=== PATIENT | male | born 1940 | race Caucasian/White ===

== ENCOUNTER 2023-02-15 13:31 | Outpatient (AMB) | payer MEDICARE, OTHER, SELFPAY ==
[2023-02-15 13:50] VITALS: BP 90/50; PULSE 63; O2SAT 96; BMI 29.3
--- NOTE | 2023-02-15 13:50 | HO.NEPHOV ---
HPI HPI Comments History of Present Illness Details I had the privilege of seeing Nathen in follow-up of his chronic kidney disease and hypertension. He is a diabetic on medications. His blood sugar control is better. His blood pressure has been at goal. Lately, he had been feeling dizzy at times. He has no edema. He denies any nausea, vomiting, shortness of breath, proximal nocturnal dyspnea, orthopnea, cough or urinary symptoms. He is trying to be compliant with low-sodium diet and fluid intake. He has not had any medication changes lately. He does not take any nonsteroidal anti-inflammatory medication. [facility] Medical History (Updated 02/15/23 @ 19:02 by Beto Collazo MD) Proteinuria Hypertension Chronic kidney disease, stage 3a Family History (Updated 02/15/23 @ 13:56 by aZndra Maria MA) Mother Heart disease Social History (Updated 02/15/23 @ 13:56 by Zandra Maria MA) Alcohol intake: never Patient Tobacco Use Status: Former Tobacco user Vital Signs 02/15/23 13:50 Height 6 ft Weight 216 lb 6 oz BMI 29.3 BP 90/50 L Blood Pressure Location Rt brachial Position Sitting Pulse 63 Pulse Source Pulse Oximeter Pulse Oximetry (%) 96 Oxygen Delivery Method Room Air Physical Exam Vital Signs: Last Vital Signs Pulse 63 02/15/23 13:50 BP 90/50 L 02/15/23 13:50 Pulse Ox 96 02/15/23 13:50 Oxygen Delivery Method Room Air 02/15/23 13:50 BMI result Body Mass Index 29.3 Const General: comfortable and no acute distress Orientation/consciousness: patient oriented x3 HEENT Head: Yes normocephalic Mouth: Normal oral and palatal mucosa present Eyes EOM: EOMs intact bilaterally Neck Neck: Yes supple Resp Auscultation: clear to auscultation bilaterally Cardio Jugular venous distension: no JVD Rate: regular rate GI Palpation (GI): Soft to palpation Auscultation: normal bowel sounds General: Yes no CVA tenderness Back/Spine/Pelvis Back: no CVA tenderness Skin General skin exam: no rashes or lesions noted Neuro General: patient oriented x3 and moves all extremities Extrem General: Yes no pedal edema Assessment & Plan Assessment & Plan (1) CKD (chronic kidney disease) stage 3, GFR 30-59 ml/min: Code(s): N18.30 - Chronic kidney disease, stage 3 unspecified Qualifiers: Chronic kidney disease stage 3 subtype: stage 3a (GFR 45-59) Qualified Code(s): N18.31 - Chronic kidney disease, stage 3a (2) Hypertension: Code(s): I10 - Essential (primary) hypertension Qualifiers: Hypertension type: primary hypertension Qualified Code(s): I10 - Essential (primary) hypertension (3) Proteinuria: Code(s): R80.9 - Proteinuria, unspecified Qualifiers: Proteinuria type: other Qualified Code(s): R80.8 - Other proteinuria (4) Vitamin D deficiency: Code(s): E55.9 - Vitamin D deficiency, unspecified Plan 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 His blood urea his high and is clearly volume contracted. I reduced his torsemide to 40 mg and 20 mg p.m. I started him on vitamin-D 96327 units once a week for 12 weeks. I also reduced his carvedilol to 6.25 mg twice daily. He should maintain low-sodium diet and fluid restriction. He should avoid any nonsteroidal anti-inflammatories and unnecessary psxu-tsy-bbxaotm medications. He should maintain his blood sugar at goal. He will be a candidate for Jardiance or Farxiga. If his serum creatinine goes up, he may back off on his YADIRA inhibitor. I did not make any other medication changes today. Follow-up lab work ordered. Time spent retrieving data, documentation and patient encounter 33 minutes. All questions answered. Follow-up given. Orders: Orders Electrolytes 02/12/23 N18.30 - Chronic kidney disease, stage 3 unspecified Blood Urea Nitrogen 02/12/23 N18.30 - Chronic kidney disease, stage 3 unspecified Creatinine 02/12/23 N18.30 - Chronic kidney disease, stage 3 unspecified Complete Blood Count Auto Diff 02/12/23 N18.30 - Chronic kidney disease, stage 3 unspecified Vitamin D 25-OH Total 02/12/23 N18.30 - Chronic kidney disease, stage 3 unspecified Creatinine Today N18.30 - Chronic kidney disease, stage 3 unspecified Calcium 02/12/23 N18.30 - Chronic kidney disease, stage 3 unspecified Phosphorus 02/12/23 N18.30 - Chronic kidney disease, stage 3 unspecified Parathyroid Hormone Intact 02/12/23 N18.30 - Chronic kidney disease, stage 3 unspecified Electrolytes Today N18.30 - Chronic kidney disease, stage 3 unspecified Blood Urea Nitrogen Today N18.30 - Chronic kidney disease, stage 3 unspecified Medications: New cholecalciferol (vitamin D3) 1,250 mcg PO QWEEK 12 caps 0RF Coding Level of Care Code Est Pt Level 4 (06539) Diagnoses Stage 3a chronic kidney disease N18.31 Chronic kidney disease stage 3 subtype: stage 3a (GFR 45-59) Primary hypertension I10 Hypertension type: primary hypertension Other proteinuria R80.8 Proteinuria type: other Vitamin D deficiency E55.9 Results Reviewed Nephrology Results: No Data to Display
== END 2023-02-15 14:20 | disposition home or self-care (01) ==
PROVIDERS: PCP Internal Medicine; Visit Provider Internal Medicine Nephrology
DX: N18.31 Chronic kidney disease, stage 3a (principal); I10 Essential (primary) hypertension; R80.8 Other proteinuria; E55.9 Vitamin D deficiency, unspecified
CPT/HCPCS: 99214

== ENCOUNTER → 2023-02-15 13:31 | Outpatient (BNVA) | payer OTHER, MEDICARE, SELFPAY | PROVIDERS: PCP Internal Medicine; Visit Provider Internal Medicine Nephrology | DX: N18.30 Chronic kidney disease, stage 3 unspecified (principal) ==

== ENCOUNTER 2023-05-03 13:49 | Outpatient (AMB) | payer MEDICARE, OTHER, SELFPAY ==
--- NOTE | 2023-05-03 14:07 | HO.NEPHOV_ITS ---
HPI HPI Comments History of Present Illness Details I had the privilege of seeing Nathen in follow-up of his chronic kidney disease and hypertension. He is a diabetic on medications. His blood sugar control is better. His blood pressure has been at goal. Lately, he had been feeling dizzy at times. He has no edema. He denies any nausea, vomiting, shortness of breath, proximal nocturnal dyspnea, orthopnea, cough or urinary symptoms. He is trying to be compliant with low-sodium diet and fluid intake. He has not had any medication changes lately. He does not take any nonsteroidal anti-inflammatory medication. [facility] Medical History (Updated 05/03/23 @ 14:39 by Beto Collazo MD) Proteinuria Hypertension Chronic kidney disease, stage 3a Family History Mother Heart disease Social History Alcohol intake: never Patient Tobacco Use Status: Former Tobacco user Vital Signs 05/03/23 14:08 Height 6 ft Weight 227 lb 4 oz BMI 30.8 BP 118/50 L Blood Pressure Location Lt brachial Position Sitting Pulse 65 Pulse Source Pulse Oximeter Physical Exam Vital Signs: Last Vital Signs Pulse 65 05/03/23 14:08 BP 118/50 L 05/03/23 14:08 BMI result Body Mass Index 30.8 Const General: comfortable and no acute distress Orientation/consciousness: patient oriented x3 HEENT Head: Yes normocephalic Mouth: Normal oral and palatal mucosa present Eyes EOM: EOMs intact bilaterally Neck Neck: Yes supple Resp Auscultation: clear to auscultation bilaterally Cardio Jugular venous distension: no JVD Rate: regular rate GI Palpation (GI): Soft to palpation Auscultation: normal bowel sounds General: Yes no CVA tenderness Back/Spine/Pelvis Back: no CVA tenderness Skin General skin exam: no rashes or lesions noted Neuro General: patient oriented x3 and moves all extremities Extrem General: Yes edema Assessment & Plan Assessment & Plan (1) CKD (chronic kidney disease) stage 3, GFR 30-59 ml/min: Code(s): N18.30 - Chronic kidney disease, stage 3 unspecified Qualifiers: Chronic kidney disease stage 3 subtype: stage 3a (GFR 45-59) Qualified Code(s): N18.31 - Chronic kidney disease, stage 3a (2) Hypertension: Code(s): I10 - Essential (primary) hypertension Qualifiers: Hypertension type: primary hypertension Qualified Code(s): I10 - Essential (primary) hypertension (3) Proteinuria: Code(s): R80.9 - Proteinuria, unspecified Qualifiers: Proteinuria type: other Qualified Code(s): R80.8 - Other proteinuria (4) Iron deficiency: Code(s): E61.1 - Iron deficiency Plan 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 He could continue current dose of diuretics. C/W vitamin-D 69474 units once a week . He should maintain low- sodium diet and fluid restriction. He should avoid any nonsteroidal anti- inflammatories and unnecessary [id number]-bwcdchx medications. He should maintain his blood sugar at goal. He will be a candidate for [employer] or [employer] at next visit. I started him on ferrous sulphate 325 mg daily. If his serum creatinine goes up, he may back off on his YADIRA inhibitor. I did not make any other medication changes today. Follow-up lab work ordered. Orders: Orders Blood Urea Nitrogen Today E61.1 - Iron deficiency, I10 - Essential (primary) hypertension, N18.30 - Chronic kidney disease, stage 3 unspecified, R80.9 - Proteinuria, unspecified Electrolytes Today E61.1 - Iron deficiency, I10 - Essential (primary) hypertension, N18.30 - Chronic kidney disease, stage 3 unspecified, R80.9 - Proteinuria, unspecified Calcium Today E61.1 - Iron deficiency, I10 - Essential (primary) hypertension, N18.30 - Chronic kidney disease, stage 3 unspecified, R80.9 - Proteinuria, unspecified Complete Blood Count Auto Diff Today E61.1 - Iron deficiency, I10 - Essential (primary) hypertension, N18.30 - Chronic kidney disease, stage 3 unspecified, R80.9 - Proteinuria, unspecified Creatinine Today E61.1 - Iron deficiency, I10 - Essential (primary) hypertension , N18.30 - Chronic kidney disease, stage 3 unspecified, R80.9 - Proteinuria, unspecified Medications: New ferrous sulfate 325 mg PO DAILY 30 tabs 10RF Coding Level of Care Code Est Pt Level 4 (15235) Diagnoses Stage 3a chronic kidney disease N18.31 Chronic kidney disease stage 3 subtype: stage 3a (GFR 45-59) Primary hypertension I10 Hypertension type: primary hypertension Other proteinuria R80.8 Proteinuria type: other Iron deficiency E61.1 Results Reviewed Nephrology Results: No Data to Display
[2023-05-03 14:08] VITALS: BP 118/50; PULSE 65; BMI 30.8
== END 2023-05-03 14:52 | disposition home or self-care (01) ==
PROVIDERS: PCP Internal Medicine; Visit Provider Internal Medicine Nephrology
DX: N18.31 Chronic kidney disease, stage 3a (principal); I10 Essential (primary) hypertension; R80.8 Other proteinuria; E61.1 Iron deficiency
CPT/HCPCS: 99214

== ENCOUNTER → 2023-05-03 13:49 | Outpatient (BNVA) | payer OTHER, MEDICARE, SELFPAY | PROVIDERS: PCP Internal Medicine; Visit Provider Internal Medicine Nephrology ==

== ENCOUNTER 2023-08-28 14:08 | Outpatient (AMB) | payer MEDICARE, OTHER, SELFPAY ==
--- NOTE | 2023-08-28 14:20 | HO.NEPHOV ---
Vital Signs 08/28/23 14:22 Height 6 ft Weight 218 lb 8 oz BMI 29.6 BP 122/60 Blood Pressure Location Lt brachial Position Sitting Pulse 74 Pulse Source Pulse Oximeter Pulse Oximetry (%) 93 Oxygen Delivery Method Room Air Intake Visit Reasons: 3 mon follow up/ Conf Feeder Switchboard Operator Required: No Allergies morphine Allergy (Verified 08/28/23 14:25) Unknown Penicillins Allergy (Verified 08/28/23 14:25) Unknown HPI Comments Details: I had the privilege of seeing Nathen in follow-up of his chronic kidney disease and hypertension. He is a diabetic on medications. His blood sugar control is better. His blood pressure has been at goal. He recently had a hospitalization with COVID and pneumonia during which he developed ANAI. His serum creatinine has improved with supportive care. He feels improved. He denies any nausea, vomiting, shortness of breath, proximal nocturnal dyspnea, orthopnea, cough or urinary symptoms. He is trying to be compliant with low-sodium diet and fluid intake. He does not take any nonsteroidal anti-inflammatory medication. [facility] Medical History (Updated 05/03/23 @ 14:39 by Beto Collazo MD) Proteinuria Hypertension Chronic kidney disease, stage 3a Family History Mother Heart disease Social History Alcohol intake: never Patient Tobacco Use Status: Former Tobacco user Physical Exam Vital Signs: Last Vital Signs Pulse 74 08/28/23 14:22 BP 122/60 08/28/23 14:22 Pulse Ox 93 08/28/23 14:22 Oxygen Delivery Method Room Air 08/28/23 14:22 BMI result Body Mass Index 29.6 Const General: comfortable and no acute distress Orientation/consciousness: patient oriented x3 HEENT Head: Yes normocephalic Mouth: Normal oral and palatal mucosa present Eyes EOM: EOMs intact bilaterally Neck Neck: Yes supple Resp Auscultation: clear to auscultation bilaterally Cardio Jugular venous distension: no JVD Rate: regular rate GI Palpation (GI): Soft to palpation Auscultation: normal bowel sounds General: Yes no CVA tenderness Back/Spine/Pelvis Back: no CVA tenderness Skin General skin exam: no rashes or lesions noted Neuro General: patient oriented x3 and moves all extremities Results Reviewed Nephrology Results: No Data to Display Assessment & Plan Assessment & Plan (1) CKD (chronic kidney disease) stage 3, GFR 30-59 ml/min: Code(s): N18.30 - Chronic kidney disease, stage 3 unspecified Category: Medical Qualifiers: Chronic kidney disease stage 3 subtype: stage 3a (GFR 45-59) Qualified Code(s): N18.31 - Chronic kidney disease, stage 3a (2) Hypertension: Code(s): I10 - Essential (primary) hypertension Category: Medical Qualifiers: Hypertension type: primary hypertension Qualified Code(s): I10 - Essential (primary) hypertension (3) Proteinuria: Code(s): R80.9 - Proteinuria, unspecified Category: Medical Qualifiers: Proteinuria type: other Qualified Code(s): R80.8 - Other proteinuria Plan 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 He could continue current dose of diuretics. C/W vitamin-D 05525 units once a week . He should maintain low-sodium diet and fluid restriction. He should avoid any nonsteroidal anti-inflammatories and unnecessary adpl-bzd-qwljtdp medications. He should maintain his blood sugar at goal. He will be a candidate for Jardiance or Farxiga at next visit. He should continue ferrous sulphate 325 mg daily. If his serum creatinine goes up, he may back off on his YADIRA inhibitor. I did not make any other medication changes today. Follow-up lab work ordered. Orders: Orders Creatinine 08/28/23 I10 - Essential (primary) hypertension, N18.31 - Chronic kidney disease, stage 3a, R80.8 - Other proteinuria Blood Urea Nitrogen 08/28/23 I10 - Essential (primary) hypertension, N18.31 - Chronic kidney disease, stage 3a, R80.8 - Other proteinuria Electrolytes 08/28/23 I10 - Essential (primary) hypertension, N18.31 - Chronic kidney disease, stage 3a, R80.8 - Other proteinuria Coding Level of Care Code Est Pt Level 4 (76892) Diagnoses Stage 3a chronic kidney disease N18.31 Chronic kidney disease stage 3 subtype: stage 3a (GFR 45-59) Primary hypertension I10 Hypertension type: primary hypertension Other proteinuria R80.8 Proteinuria type: other
[2023-08-28 14:22] VITALS: BP 122/60; PULSE 74; O2SAT 93; BMI 29.6
== END 2023-08-28 14:54 | disposition home or self-care (01) ==
PROVIDERS: PCP Internal Medicine; Visit Provider Internal Medicine Nephrology
DX: N18.31 Chronic kidney disease, stage 3a (principal); I10 Essential (primary) hypertension; R80.8 Other proteinuria
CPT/HCPCS: 99214

== ENCOUNTER → 2023-08-28 14:08 | Outpatient (BNVA) | payer OTHER, MEDICARE, SELFPAY | PROVIDERS: PCP Internal Medicine; Visit Provider Internal Medicine Nephrology ==

== ENCOUNTER 2023-11-13 13:52 | Outpatient (AMB) | payer MEDICARE, OTHER, SELFPAY ==
--- NOTE | 2023-11-13 13:58 | HO.NEPHOV ---
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 He is a diabetic on medications. His blood sugar control is better. His blood pressure has been at goal. His edema is gone. He has been having intermittent orthostatic symptoms. He has been holding diuretics. His serum creatinine is worse. He feels improved. He denies any nausea, vomiting, shortness of breath, proximal nocturnal dyspnea, orthopnea, cough or urinary symptoms. He is trying to be compliant with low-sodium diet and fluid intake. He does not take any nonsteroidal anti-inflammatory medication. [facility] Medical History (Updated 11/13/23 @ 20:01 by Beto Collazo MD) Proteinuria Hypertension Chronic kidney disease, stage 3a Family History Mother Heart disease Social History Alcohol intake: never Patient Tobacco Use Status: Former Tobacco user Review of Systems Const All systems reviewed & are unremarkable except as noted in HPI and below Physical Exam Vital Signs: Last Vital Signs Pulse 66 11/13/23 13:59 BP 100/50 L 11/13/23 13:59 Pulse Ox 96 11/13/23 13:59 Oxygen Delivery Method Room Air 11/13/23 13:59 BMI result Body Mass Index 30.5 Const General: comfortable and no acute distress Orientation/consciousness: patient oriented x3 HEENT Head: Yes normocephalic Mouth: Normal oral and palatal mucosa present Eyes EOM: EOMs intact bilaterally Neck Neck: Yes supple Resp Auscultation: clear to auscultation bilaterally Cardio Jugular venous distension: no JVD Rate: regular rate GI Palpation (GI): Soft to palpation Auscultation: normal bowel sounds General: Yes no CVA tenderness Back/Spine/Pelvis Back: no CVA tenderness Skin General skin exam: no rashes or lesions noted Neuro General: patient oriented x3 and moves all extremities Extrem General: Yes no pedal edema Results Reviewed Nephrology Results: No Data to Display Assessment & Plan Assessment & Plan (1) CKD (chronic kidney disease) stage 3, GFR 30-59 ml/min: Code(s): N18.30 - Chronic kidney disease, stage 3 unspecified Category: Medical Qualifiers: Chronic kidney disease stage 3 subtype: stage 3a (GFR 45-59) Qualified Code(s): N18.31 - Chronic kidney disease, stage 3a (2) Hypertension: Code(s): I10 - Essential (primary) hypertension Category: Medical Qualifiers: Hypertension type: primary hypertension Qualified Code(s): I10 - Essential (primary) hypertension (3) Iron deficiency: Code(s): E61.1 - Iron deficiency Category: Medical (4) ANAI (acute kidney injury): Code(s): N17.9 - Acute kidney failure, unspecified Category: Medical (5) Metabolic acidosis: Code(s): E87.20 - Acidosis, unspecified Category: Medical (6) Proteinuria: Code(s): R80.9 - Proteinuria, unspecified Category: Medical Qualifiers: Proteinuria type: other Qualified Code(s): R80.8 - Other proteinuria (7) Vitamin D deficiency: Code(s): E55.9 - Vitamin D deficiency, unspecified Category: Medical Plan 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 His diuretics have been on hold . I reduced his Nifedipine to 60 mg and lisinopril to 10 mg daily. I also started him on PO NaHCO3. He can C/W vitamin-D 61919 units once a week . He should maintain low-sodium diet and fluid restriction. He should avoid any nonsteroidal anti-inflammatories and unnecessary sbfw-ytq-ebjikyj medications. He should maintain his blood sugar at goal. He will be a candidate for Jardiance or Farxiga at next visit. He should continue ferrous sulphate 325 mg daily. I did not make any other medication changes today. Follow-up lab work ordered Orders: Orders Creatinine Today E61.1 - Iron deficiency, I10 - Essential (primary) hypertension, N18.31 - Chronic kidney disease, stage 3a Electrolytes Today E61.1 - Iron deficiency, I10 - Essential (primary) hypertension, N18.31 - Chronic kidney disease, stage 3a Calcium Today E61.1 - Iron deficiency, I10 - Essential (primary) hypertension, N18.31 - Chronic kidney disease, stage 3a Complete Blood Count Auto Diff Today E61.1 - Iron deficiency, I10 - Essential (primary) hypertension, N18.31 - Chronic kidney disease, stage 3a Blood Urea Nitrogen Today E61.1 - Iron deficiency, I10 - Essential (primary) hypertension, N18.31 - Chronic kidney disease, stage 3a Ferritin Today E61.1 - Iron deficiency, I10 - Essential (primary) hypertension, N18.31 - Chronic kidney disease, stage 3a IRON PROFILE Today E61.1 - Iron deficiency, I10 - Essential (primary) hypertension, N18.31 - Chronic kidney disease, stage 3a Medications: New sodium bicarbonate 650 mg PO BID 60 tabs 0RF Coding Level of Care Code Est Pt Level 4 (15191) Diagnoses Stage 3a chronic kidney disease N18.31 Chronic kidney disease stage 3 subtype: stage 3a (GFR 45-59) Primary hypertension I10 Hypertension type: primary hypertension Iron deficiency E61.1 ANAI (acute kidney injury) N17.9 Metabolic acidosis E87.20 Other proteinuria R80.8 Proteinuria type: other Vitamin D deficiency E55.9
[2023-11-13 13:59] VITALS: BP 100/50; PULSE 66; O2SAT 96; BMI 30.5
== END 2023-11-13 14:53 | disposition home or self-care (01) ==
PROVIDERS: PCP Internal Medicine; Visit Provider Internal Medicine Nephrology
DX: N18.31 Chronic kidney disease, stage 3a (principal); I10 Essential (primary) hypertension; E61.1 Iron deficiency; N17.9 Acute kidney failure, unspecified; E87.20 Acidosis, unspecified; R80.8 Other proteinuria; E55.9 Vitamin D deficiency, unspecified
CPT/HCPCS: 99214

== ENCOUNTER → 2023-11-13 13:52 | Outpatient (BNVA) | payer OTHER, MEDICARE, SELFPAY | PROVIDERS: PCP Internal Medicine; Visit Provider Internal Medicine Nephrology ==

== ENCOUNTER 2023-12-11 14:08 | Outpatient (AMB) | payer MEDICARE, OTHER, SELFPAY ==
--- NOTE | 2023-12-11 14:20 | HO.NEPHOV ---
Vital Signs 12/11/23 14:21 Height 6 ft Weight 230 lb BMI 31.2 BP 120/60 Blood Pressure Location Lt brachial Position Sitting Pulse 75 Pulse Source Pulse Oximeter Pulse Oximetry (%) 92 Oxygen Delivery Method Room Air Intake Visit Reasons: 4 wks follow up- [facility] Psychologist Social Required: No Accompanied by: Significant Other Allergies morphine Allergy (Verified 12/11/23 14:22) Unknown Penicillins Allergy (Verified 12/11/23 14:22) Unknown HPI Comments Details: Nathen in follow-up of his chronic kidney disease and hypertension. He is a diabetic on medications. His blood sugar control is better. His blood pressure has been at goal. His edema is gone. He has been having intermittent orthostatic symptoms. He has been holding diuretics. He feels improved. He denies any nausea, vomiting, shortness of breath, proximal nocturnal dyspnea, orthopnea, cough or urinary symptoms. He is trying to be compliant with low-sodium diet and fluid intake. He does not take any nonsteroidal anti-inflammatory medication. [facility] Medical History (Updated 11/13/23 @ 20:01 by Beto Collazo MD) Proteinuria Hypertension Chronic kidney disease, stage 3a Family History Mother Heart disease Social History Alcohol intake: never Patient Tobacco Use Status: Former Tobacco user Review of Systems Const All systems reviewed & are unremarkable except as noted in HPI and below Physical Exam Vital Signs: Last Vital Signs Pulse 75 12/11/23 14:21 BP 120/60 12/11/23 14:21 Pulse Ox 92 12/11/23 14:21 Oxygen Delivery Method Room Air 12/11/23 14:21 BMI result Body Mass Index 31.2 Const General: comfortable and no acute distress Orientation/consciousness: patient oriented x3 HEENT Head: Yes normocephalic Mouth: Normal oral and palatal mucosa present Eyes EOM: EOMs intact bilaterally Neck Neck: Yes supple Resp Auscultation: clear to auscultation bilaterally Cardio Jugular venous distension: no JVD Rate: regular rate GI Palpation (GI): Soft to palpation Auscultation: normal bowel sounds General: Yes no CVA tenderness Back/Spine/Pelvis Back: no CVA tenderness Skin General skin exam: no rashes or lesions noted Neuro General: patient oriented x3 and moves all extremities Extrem General: Yes no pedal edema Results Reviewed Nephrology Results: No Data to Display Assessment & Plan Assessment & Plan (1) CKD (chronic kidney disease) stage 3, GFR 30-59 ml/min: Code(s): N18.30 - Chronic kidney disease, stage 3 unspecified Category: Medical Qualifiers: Chronic kidney disease stage 3 subtype: stage 3a (GFR 45-59) Qualified Code(s): N18.31 - Chronic kidney disease, stage 3a (2) Hypertension: Code(s): I10 - Essential (primary) hypertension Category: Medical Qualifiers: Hypertension type: primary hypertension Qualified Code(s): I10 - Essential (primary) hypertension (3) Vitamin D deficiency: Code(s): E55.9 - Vitamin D deficiency, unspecified Category: Medical (4) Iron deficiency: Code(s): E61.1 - Iron deficiency Category: Medical (5) Metabolic acidosis: Code(s): E87.20 - Acidosis, unspecified Category: Medical Plan 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 His renal functions are baseline. His diuretics have been on hold .He can C/W vitamin-D 86342 units once a week . He should maintain low-sodium diet and fluid restriction. He should avoid any nonsteroidal anti-inflammatories and unnecessary rbjd-udw-uwzodeh medications. He should maintain his blood sugar at goal. He will be a candidate for Jardiance or Farxiga . He should continue ferrous sulphate 325 mg daily. I did not make any other medication changes today. Follow-up lab work ordered Coding Level of Care Code Est Pt Level 4 (86077) Diagnoses Stage 3a chronic kidney disease N18.31 Chronic kidney disease stage 3 subtype: stage 3a (GFR 45-59) Primary hypertension I10 Hypertension type: primary hypertension Vitamin D deficiency E55.9 Iron deficiency E61.1 Metabolic acidosis E87.20
[2023-12-11 14:21] VITALS: BP 120/60; PULSE 75; O2SAT 92; BMI 31.2
== END 2023-12-11 14:50 | disposition home or self-care (01) ==
PROVIDERS: PCP Internal Medicine; Visit Provider Internal Medicine Nephrology
DX: N18.31 Chronic kidney disease, stage 3a (principal); I10 Essential (primary) hypertension; E55.9 Vitamin D deficiency, unspecified; E61.1 Iron deficiency; E87.20 Acidosis, unspecified
CPT/HCPCS: 99214

== ENCOUNTER → 2023-12-11 14:08 | Outpatient (BNVA) | payer OTHER, MEDICARE, SELFPAY | PROVIDERS: PCP Internal Medicine; Visit Provider Internal Medicine Nephrology ==

== ENCOUNTER 2024-04-09 13:40 | Outpatient (REF) | payer MEDICARE, OTHER, SELFPAY ==
--- OUTSIDE RECORDS SUMMARY | 2024-04-09 15:03 | XMS_ITS | Encounter Summary ---
Author Organization [facility] Address [address] [place] [address] Care Team Providers Care Fruit Ii Farmworker Name Role Phone Isac Jhaveri MD Primary Care Provider [phone] Encounter Details Date Type Department Care Team Description 10/19/2023 Social Work [facility] Oncology Services [address] [place] [address] Vidal Demarco, [facility] Social History Tobacco Use Types Packs/Day Years Used Date Smoking Tobacco: Former Cigarettes 1 30 Smokeless Tobacco: Never Alcohol Use Standard Drinks/Week Comments Not Currently 0 (1 standard drink = 0.6 oz pur e alcohol) Sex and Gender Information Value Date Recorded Sex Assigned at Male 09/18/2023 3:53 PM EDT Gender Identity Not on file Sexual Orientation Not on file Job Start Date Occupation Industry Not on file Not on file Not on file documented as of this encounter Plan of Treatment Not on file documented as of this encounter Visit Diagnoses Not on filedocumented in this encounter Care Teams Fruit Ii Farmworker Relationship Specialty Start Date End Date Isac Jhaveri MD [facility] [address] [address] PCP - General History Department Chair 09/18/23 documented as of this encounter
--- OUTSIDE RECORDS SUMMARY | 2024-04-09 15:03 | XMS_ITS | Clinical Summary ---
Author Organization [facility] Address [address] [facility] [address] [place] [address] Phone Care Team Providers Care Social Work Program Coordinator Name Role Phone Isac Jhaveri MD Primary Care Provider [phone] Allergies Active Allergy Reactions Criticality Noted Date Comments Morphine 11/01/2021 Penicillins Other (see comments) 05/03/2020 Medications carvedilol (COREG) 12.5 MG tablet Take 6.25 mg by mouth in the morning and 6.25 mg in the evening. 0 Active citalopram (CeleXA) 10 MG tablet Take 1 tablet by mouth 1 (one) time each day Active insulin aspart (NovoLOG FLEXPEN) 100 UNIT/ML injection Active insulin glargine (Basaglar KwikPen) 100 UNIT/ML injection Inject 45 Units under the skin 1 (one) time each day Active torsemide (DEMADEX) 20 MG tablet Take 2 tablets by mouth in the morning and 2 tablets in the evening. Active levothyroxine (SYNTHROID, LEVOTHROID) 125 MCG tablet Take 125 mcg by mouth 1 (one) time each day 0 Active Breo Ellipta 100-25 MCG/INH aerosol powder INHALE 1 PUFF BY INHALATION ROUTE ONCE DAILY AT THE SAME TIME EACH DAY 1 Active isosorbide mononitrate (IMDUR) 30 MG 24 hr tablet TAKE 2 TABLETS (60 MG TOTAL) BY MOUTH 1 (ONE) TIME EACH DAY 180 tablet 1 1 Active atorvastatin (LIPITOR) 20 MG tablet Take 20 mg by mouth 1 (one) time each day Active calcium carbonate-vitami n D (OSCAL-500) 500-200 MG-UNIT per tablet Take 1 tablet by mouth 1 (one) time each day Active lisinopril 20 MG tablet Take 20 mg by mouth 1 (one) time each day 2 Active albuterol HFA (PROVENTIL HFA;VENTOLIN HFA) 108 (90 Base) MCG/ACT inhaler INHALE 2 PUFFS BY MOUTH FOUR TIMES DAILY NEEDED 3 Active hydrALAZINE 25 MG tablet Take 50 mg by mouth in the morning and 50 mg in the evening. 3 Active NIFEdipine XL (PROCARDIA XL) 30 MG 24 hr tablet Take 90 mg by mouth 1 (one) time each day 3 Active rosuvastatin (CRESTOR) 10 MG tablet Take 10 mg by mouth 1 (one) time each day in the evening 3 Active metOLazone 2.5 MG tablet Take 1 tablet (2.5 mg total) by mouth per week 12 tablet 3 3 Active Active Problems Problem Noted Date Diagnosed Date Fracture of ankle 02/09/2022 Hypertensive emergency 02/09/2022 Obese class II 10/26/2021 Hypertension 11/12/2020 Stage 3a chronic kidney disease 05/03/2020 Essential hypertension 05/03/2020 Posttraumatic stress disorder 04/21/2008 Dyslipidemia 04/21/2008 Type 2 diabetes mellitus 04/21/2005 Immunizations Name Administration Dates Next Due Pfizer SARS-COV-2 11/30/2020,05/07/2020,04/16/19 21 Pneumococcal Polysaccharide 05/30/2009 Shingrix 04/09/2018 Family History Medical History Relation Comments Heart disease Brother Cancer Father Heart disease Mother Relation Status Comments Brother Father Mother Social History Tobacco Use Types Packs/Day Years Used Date Smoking Tobacco: Never Smokeless Tobacco: Never Tobacco Cessation:Counseling Given: Not Answered Alcohol Use Standard Drinks/Week Comments Yes 0 (1 standard drink = 0.6 oz pur e alcohol) Sex and Gender Information Value Date Recorded Sex Assigned at Not on file Legal Sex Male 4:44 PM EST Gender Identity Not on file Sexual Orientation Not on file Last Filed Vital Signs Vital Sign Reading Time Taken Comments Blood Pressure 120/50 11/07/2022 2:44 PM EDT Pulse 62 11/07/2022 2:44 PM EDT Temperature - - Respiratory Rate - - Oxygen Saturation 95% 11/01/2021 1:03 PM EDT Inhaled Oxygen Concentration - - Weight 107 kg (236 lb) 11/07/2022 2:44 PM EDT Height 182.9 cm (6') 12/19/2019 12:01 PM EDT Body Mass Index 32.01 12/19/2019 12:01 PM EDT Plan of Treatment Health Maintenance Due Date Last Done Comments Pneumococcal Vaccine: 65+ Ye ars (2 of 2 - PCV) 05/30/2010 05/30/2009 Diabetes: Hemoglobin A1C 03/01/2021 11/16/2019 Diabetes: Ophthalmology Exam 03/01/2021 Diabetes: Pedal Pulse Checked 03/01/2021 Diabetes: Sensory Foot Exam 03/01/2021 Diabetes: Visual Foot Exam 03/01/2021 Influenza Vaccine (#1) 2023 Hepatitis B Vaccine Aged Out No longe r eligible based on patient's age to complete this topic Procedures Procedure Name Priority Date/Time Associated Diagnosis Comments BLOOD PANEL (HC) Routine 11/16/2019 12:0 0 AM EDT from Last 3 Months or Most Recently Relevant to Health Maintenance Results * (ABNORMAL) Blood Panel (11/16/2019 12:00 AM EDT) Sodium 146(H) 137 - 145 mmol/L PVNMA Carbon Dioxide (CO2) 29 22 - 30 mmol/L PVNMA Calcium 8.3(L) 8.4 - 10.2 mg/dl PVNMA eGFR Non- 66 >60 ml/min PVNMA Potassium 3.8 3.5 - 5.1 mmol/L PVNMA BUN 22(H) 9 - 20 mg/dl PVNMA Creatinine 1.1 0.70 - 1.30 mg/dl PVNMA Hgb 8.8(L) 13.0 - 16.5 g/dl PVNMA Platelets 272 140 - 440 k/uL PVNMA Hemoglobin A1C 6.8(H) <5 % PVNMA eGFR 77 >60 ml/min PVNMA Hematocrit 31.1(L) 38 - 50 % PVNMA 11/16/2019 us Rtama Conversion LAB [id number] LICITED RESULTS Final Result PVNMA from Last 3 Months or Most Recently Relevant to Health Maintenance Insurance ARE MEDICARE [facility]ICARE [facility] Care Teams Social Work Program Coordinator Relationship Specialty Start Date End Date Isac Jhaveri MD [address] [place] [address] PCP - General 03/15/20
--- OUTSIDE RECORDS SUMMARY | 2024-04-09 15:03 | XMS_ITS | Clinical Summary ---
Author Organization [facility] Address [address] [place] [address] Care Team Providers Care Church Worker Name Role Phone Isac Jhaveri MD Primary Care Provider [phone] Allergies Active Allergy Reactions Criticality Noted Date Comments Morphine 10/18/2023 Penicillins 10/18/2023 Medications Medication Sig Dispensed Refills Start Date End Date Status torsemide (DEMADEX) 20 MG tablet Take 1 tablet (20 mg total) by mouth daily. 0 Active rosuvastatin (CRESTOR) tablet 10 mg Take 1 tablet (10 mg total) by mouth daily. 0 Active carvedilol (COREG) 12.5 MG tablet Take 1 tablet (12.5 mg total) by mouth 2 (two) times a day with meals. 0 Active ISOSORBIDE DINITRATE PO Take 2 tablets by mouth every morning. 0 Active hydrALAZINE (APRESOLINE) 25 MG tablet Take 1 tablet (25 mg total) by mouth 2 (two) times a day. 0 Active NIFEdipine (PROCARDIA XL) 90 MG 24 hr tablet Take 1 tablet (90 mg total) by mouth daily. 0 Active lisinopril (PRINIVIL,ZESTRIL) tablet 20 mg Take 1 tablet (20 mg total) by mouth daily. 0 Active levothyroxine (SYNTHROID) tablet 125 mcg Take 1 tablet (125 mcg total) by mouth every morning on an empty stomach. 0 Active citalopram (CeleXA) 10 MG tablet Take 1 tablet (10 mg total) by mouth daily. 0 Active Active Problems No known active problems Family History Medical History Relation Name Comments Cancer Father Relation Name Status Comments Father Social History Tobacco Use Types Packs/Day Years Used Date Smoking Tobacco: Former Cigarettes 1 30 Smokeless Tobacco: Never Tobacco Cessation:Counseling Given: Not Answered Alcohol Use Standard Drinks/Week Comments Not Currently 0 (1 standard drink = 0.6 oz pur e alcohol) Sex and Gender Information Value Date Recorded Sex Assigned at Male 09/18/2023 3:53 PM EDT Gender Identity Not on file Sexual Orientation Not on file Job Start Date Occupation Industry Not on file Not on file Not on file Last Filed Vital Signs Vital Sign Reading Time Taken Comments Blood Pressure 146/50 11/08/2023 10:37 AM EDT Pulse 77 11/08/2023 10:37 AM EDT Temperature 36.1 ??C (96.9 ??F) 11/08/2023 1 0:37 AM EDT Respiratory Rate - - Oxygen Saturation 95% 11/08/2023 10: 37 AM EDT Inhaled Oxygen Concentration - - Weight 101.2 kg (223 lb 3.2 oz) 024 10:37 AM EDT Height 182.9 cm (6') 10/18/2023 11:17 AM EDT Body Mass Index 30.27 10/18/2023 11:17 AM EDT Plan of Treatment Health Maintenance Due Date Last Done Comments Depression Screening 1952 BMI Counseling 07/13/1959 Preventative Health Evaluation 07/13/1959 DTap / Tdap / Td (1 - Tdap) 1960 Fall Risk Assessment 2006 Pneumococcal Vaccine (2 of 2 - PCV) 05/30/2010 05/30/2009 RSV Adult > 60+ Yrs or (1 - 1-dose 75+ series) 2016 Shingrix-Zoster Vaccine (2 of 2) 06/04/2018 04/09/2018 COVID-19 Vaccine ( season) 2023 06/28/2021, 11/30/2020, 05/07/2020, Additional history exists Influenza Vaccine (#1) 2023 Hepatitis B Vaccines Aged Out No long er eligible based on patient's age to complete this topic RSV Ped < 20 months Aged Out No longe r eligible based on patient's age to complete this topic Care Teams Church Worker Relationship Specialty Start Date End Date Isac Jhaveri MD [address] [facility] [address] [place] [address] PCP - General Turn Out 09/18/23
[2024-04-09 18:27] LABS: MANUAL DIFF FLAG NO
[2024-04-09 18:38] LABS: Basophils Absolute Auto 0.1 X10*3/uL (0.0-0.2); Eosinophils Absolute Auto 0.5 X10*3/uL (0.0-0.4); Hematocrit 31.5 % (42.0-52.0); Hemoglobin 10.7 g/dl (14.0-18.0); Imm Gran Abs Auto 0.04 X10*3/uL (0.00-0.03); Imm Gran Pct Auto 0.5 % (0.0-0.4); Lymphocytes Absolute Auto 1.3 X10*3/uL (1.2-4.9); Lymphocytes Percent Auto 16.4 % (20-40); Mean Corpuscular Hemoglobin 29.3 pg (27.0-33.0); Mean Corpuscular Volume 86.3 fL (80.0-98.0); Mean Platelet Volume 10.7 fL (9.4-12.4); Monocytes Absolute Auto 0.8 X10*3/uL (0.1-1.2); Neutrophils Absolute Auto 5.3 x10*3/uL (2.0-8.3); Neutrophils Percent Auto 66.1 % (45-73); Platelet Count 288 X10*3/uL (160-400); Red Blood Count 3.65 X10*6/uL (4.60-5.80)
[2024-04-09 18:45] LABS: Anion Gap 12 (12-20); Blood Urea Nitrogen 39 mg/dL (9-16); Calcium 7.8 mg/dL (8.4-10.2); Carbon Dioxide 20 mmol/L (22-29); Chloride 115 mmol/L (96-108); Estimated Glomerular Filt Rate 32; Iron 65 mcg/dL (45-160); Percent Iron Saturation 31 % (15-50); Potassium 3.3 mmol/L (3.3-5.1); Sodium 144 mmol/L (135-145); Total Iron Binding Capacity 209 mcg/dL (228-428); Unsaturated Iron Binding 144 ug/dL
[2024-04-09 19:08] LABS: Ferritin 171 ng/mL (20-250)
== END 2024-04-09 13:41 | disposition home or self-care (01) ==
LOC: HO.HKASLDS 13:40
PROVIDERS: Visit Provider Internal Medicine Nephrology
DX: E61.1 Iron deficiency (principal); R80.9 Proteinuria, unspecified; I12.9 Hypertensive chronic kidney disease with stage 1 through stage 4 chronic kidney disease, or unspecified chronic kidney disease; N18.30 Chronic kidney disease, stage 3 unspecified; N18.31 Chronic kidney disease, stage 3a
CPT/HCPCS: 36415; 80051; 82310; 82565; 82728; 83540; 84520; 85025

== ENCOUNTER 2024-04-15 11:34 | Outpatient (AMB) | payer OTHER, MEDICARE, SELFPAY ==
--- NOTE | 2024-04-15 12:20 | HO.NEPHOV ---
Vital Signs 04/15/24 12:24 Height 6 ft Weight 231 lb BMI 31.3 BP 150/70 H Blood Pressure Location Lt brachial Position Sitting Pulse 58 Pulse Source Pulse Oximeter Pulse Oximetry (%) 92 Oxygen Delivery Method Room Air Intake Visit Reasons: 3 mo follow up/ Conf Accompanied by: Significant Other Allergies morphine Allergy (Verified 04/15/24 12:23) Unknown Penicillins Allergy (Verified 04/15/24 12:23) Unknown HPI Comments Details: Nathen in follow-up of his chronic kidney disease and hypertension. He is a diabetic on medications. His blood sugar control is better. His blood pressure has been at goal. His edema is gone. He has been having intermittent orthostatic symptoms. He has been holding diuretics & takes as needed. He feels improved. He denies any nausea, vomiting, shortness of breath, proximal nocturnal dyspnea, orthopnea, cough or urinary symptoms. He is trying to be compliant with low-sodium diet and fluid intake. He does not take any nonsteroidal anti-inflammatory medication. [facility] Medical History (Updated 11/13/23 @ 20:01 by Beto Collazo MD) Proteinuria Hypertension Chronic kidney disease, stage 3a Surgical History (Updated 04/15/24 @ 12:24 by Zandra Maria MA) History of cataract surgery Family History Mother Heart disease Social History Alcohol intake: never Patient Tobacco Use Status: Former Tobacco user Review of Systems Const All systems reviewed & are unremarkable except as noted in HPI and below Physical Exam Vital Signs: Last Vital Signs Pulse 58 04/15/24 12:24 BP 150/70 H 04/15/24 12:24 Pulse Ox 92 04/15/24 12:24 Oxygen Delivery Method Room Air 04/15/24 12:24 BMI result Body Mass Index 31.3 Const General: comfortable and no acute distress Orientation/consciousness: patient oriented x3 HEENT Head: Yes normocephalic Mouth: Normal oral and palatal mucosa present Eyes EOM: EOMs intact bilaterally Neck Neck: Yes supple Resp Auscultation: clear to auscultation bilaterally Cardio Jugular venous distension: no JVD Rate: regular rate GI Palpation (GI): Soft to palpation Auscultation: normal bowel sounds General: Yes no CVA tenderness Back/Spine/Pelvis Back: no CVA tenderness Skin General skin exam: no rashes or lesions noted Neuro General: patient oriented x3 and moves all extremities Results Reviewed Nephrology Results: Hgb 10.7 g/dl (14.0-18.0) L 04/09/24 WBC 8.0 X10*3/uL (4.8-10.8) 04/09/24 Plt Count 288 X10*3/uL (160-400) 04/09/24 Sodium 144 mmol/L (135-145) 04/09/24 Potassium 3.3 mmol/L (3.3-5.1) 04/09/24 Chloride 115 mmol/L (96-108) H 04/09/24 Carbon Dioxide 20 mmol/L (22-29) L 04/09/24 BUN 39 mg/dL (9-16) H 04/09/24 Creatinine 2.01 mg/dL (0.5-1.4) H 04/09/24 Calcium 7.8 mg/dL (8.4-10.2) L 04/09/24 Assessment & Plan Assessment & Plan (1) CKD (chronic kidney disease) stage 3, GFR 30-59 ml/min: Code(s): N18.30 - Chronic kidney disease, stage 3 unspecified Category: Medical Qualifiers: Chronic kidney disease stage 3 subtype: stage 3a (GFR 45-59) Qualified Code(s): N18.31 - Chronic kidney disease, stage 3a Plan 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 His serum creatinine has gone up from baseline. I reduced his lisinopril to 10 mg daily. His diuretics have been on hold & he takes as needed . He can C/W vitamin-D 62798 units once a week . He should maintain low-sodium diet and fluid restriction. He should avoid any nonsteroidal anti-inflammatories and unnecessary [id number] medications. He should maintain his blood sugar at goal. He will be a candidate for Jardiance or Farxiga . He should continue ferrous sulphate 325 mg daily. If he continues to have edema issues, I plan to back off on Nifedipine. I did not make any other medication changes today. Follow-up lab work ordered Orders: Orders Creatinine 3 Months N18.31 - Chronic kidney disease, stage 3a Blood Urea Nitrogen 3 Months N18.31 - Chronic kidney disease, stage 3a Electrolytes 3 Months N18.31 - Chronic kidney disease, stage 3a Medications: Changed From lisinopril 20 mg PO DAILY To lisinopril 20 mg (2 x 10 mg) PO DAILY 90 tabs 3RF Coding Level of Care Code Est Pt Level 4 (79800) Diagnoses Stage 3a chronic kidney disease N18.31 Chronic kidney disease stage 3 subtype: stage 3a (GFR 45-59)
[2024-04-15 12:24] VITALS: BP 150/70; PULSE 58; O2SAT 92; BMI 31.3
--- OUTSIDE RECORDS SUMMARY | 2024-04-15 13:12 | XMS_ITS | Encounter Summary ---
Author Organization [facility] Address [address] [place] [address] Care Team Providers Care Fern Cutter Name Role Phone Isac Jhaveri MD Primary Care Provider [phone] Encounter Details Date Type Department Care Team Description 10/19/2023 Social Work [facility] Oncology Services [address] [place] [address] Vidal Demarco, [facility] Social History Tobacco Use [...] on filedocumented in this encounter Care Teams Fern Cutter Relationship Specialty Start Date End Date Isac Jhaveri MD [facility] [address] [address] PCP - General Poultry Service Technician 09/18/23 documented as of this encounter
--- OUTSIDE RECORDS SUMMARY | 2024-04-15 13:12 | XMS_ITS | Clinical Summary ---
Author Organization [facility] Address [address] [place] [address] Care Team Providers Care Bowling Ball Mold Assembler Name Role Phone Isac Jhaveri MD Primary Care Provider Allergies Active Allergy Reactions Criticality Noted Date [...] age to complete this topic Care Teams Bowling Ball Mold Assembler Relationship Specialty Start Date End Date Isac Jhaveri MD [address] [facility] [address] [place] [address] PCP - General Instructional Supervisor 09/18/23
--- OUTSIDE RECORDS SUMMARY | 2024-04-15 13:12 | XMS_ITS | Clinical Summary ---
Author Organization [facility] Address [address] [facility] [address] [place] [address] Phone Care Team Providers Care Greaser And Oiler Name Role Phone Isac Jhaveri MD Primary Care Provider [phone] Allergies Active Allergy Reactions Criticality Noted Date [...] % PVNMA 11/16/2019 us Rtama Conversion LAB [id number] LICITED RESULTS Final Result PVNMA from Last 3 Months or Most Recently Relevant to Health Maintenance Insurance ARE MEDICARE MEDICARE [facility] Care Teams Greaser And Oiler Relationship Specialty Start Date End Date Isac Jhaveri MD [address] [place] [address] PCP - General 03/15/20
== END 2024-04-15 12:45 | disposition home or self-care (01) ==
PROVIDERS: PCP Internal Medicine; Visit Provider Internal Medicine Nephrology
DX: N18.31 Chronic kidney disease, stage 3a (principal)
CPT/HCPCS: 99214

== ENCOUNTER 2024-06-10 12:14 | Outpatient (REF) | payer MEDICARE, OTHER, SELFPAY ==
--- OUTSIDE RECORDS SUMMARY | 2024-06-10 14:51 | XMS_ITS | Clinical Summary ---
Author Organization [facility] Address [address] [place] [address] Care Team Providers Care Tooth Grinder Name Role Phone Isac Jhaveri MD Primary Care Provider [phone] Allergies Active Allergy Reactions Criticality Noted Date [...] age to complete this topic Care Teams Tooth Grinder Relationship Specialty Start Date End Date Isac Jhaveri MD [address] [facility] [address] [place] [address] PCP - General Senior Business Broker 09/18/23
--- OUTSIDE RECORDS SUMMARY | 2024-06-10 14:51 | XMS_ITS | Clinical Summary ---
Author Organization [facility] Address [address] [facility] [address] [place] [address] Phone Care Team Providers Care Information Security Associate Name Role Phone Isac Jhaveri MD Primary Care Provider [phone] Allergies Active Allergy Reactions Criticality Noted Date [...] Diabetes: Visual Foot Exam 03/01/2021 Influenza Vaccine (Season Ended) 2024 Hepatitis B Vaccine Aged Out No longe [...] % PVNMA 11/16/2019 us Rtama Conversion LAB [id number] LICITED RESULTS Final Result PVNMA from Last 3 Months or Most Recently Relevant to Health Maintenance Insurance * Guarantor: Nathen Toussaint Account Type Relation to Patient Date of Phone Billing Address Personal/Family Self [address] [place] [address] [place], [place] [address]ARE MEDICARE MEDICARE [facility] Care Teams Information Security Associate Relationship Specialty Start Date End Date Isac Jhaveri MD [address] [place] [address] PCP - General 03/15/20
--- OUTSIDE RECORDS SUMMARY | 2024-06-10 14:51 | XMS_ITS | Encounter Summary ---
Author Organization [facility] Address [address] [place] [address] Care Team Providers Care Acquisition Marketing Coordinator Name Role Phone Isac Jhaveri MD Primary Care Provider [phone] Encounter Details Date Type Department Care Team Description 10/19/2023 Social Work [facility] Oncology Services [address] [place] [address] Vidal Demarco, [facility] Social History Tobacco Use Types Packs/Day Years [...] on filedocumented in this encounter Care Teams Acquisition Marketing Coordinator Relationship Specialty Start Date End Date Isac Jhaveri MD [facility] [address] [place] [address] [address] PCP - General Real Estate Services Administrator 09/18/23 documented as of this encounter
[2024-06-10 18:41] LABS: MANUAL DIFF FLAG NO
[2024-06-10 18:56] LABS: Basophils Absolute Auto 0.1 X10*3/uL (0.0-0.2); Basophils Percent Auto 0.9 % (0-2); Eosinophils Absolute Auto 0.3 X10*3/uL (0.0-0.4); Eosinophils Percent Auto 4.3 % (0-4); Hematocrit 31.2 % (42.0-52.0); Hemoglobin 10.6 g/dl (14.0-18.0); Imm Gran Abs Auto 0.06 X10*3/uL (0.00-0.03); Imm Gran Pct Auto 0.9 % (0.0-0.4); Lymphocytes Absolute Auto 0.9 X10*3/uL (1.2-4.9); Lymphocytes Percent Auto 13.7 % (20-40); Mean Corpuscular Volume 85.2 fL (80.0-98.0); Mean Platelet Volume 10.6 fL (9.4-12.4); Monocytes Absolute Auto 0.7 X10*3/uL (0.1-1.2); Monocytes Percent Auto 10.6 % (2-11); Neutrophils Absolute Auto 4.7 x10*3/uL (2.0-8.3); Neutrophils Percent Auto 69.6 % (45-73); Platelet Count 257 X10*3/uL (160-400); Red Blood Count 3.66 X10*6/uL (4.60-5.80); Red Cell Distribution Width 13.2 % (11.0-16.0); White Blood Count 6.8 X10*3/uL (4.8-10.8)
[2024-06-10 19:06] LABS: Anion Gap 10 (12-20); Blood Urea Nitrogen 80 mg/dL (9-16); Calcium 8.1 mg/dL (8.4-10.2); Carbon Dioxide 17 mmol/L (22-29); Chloride 116 mmol/L (96-108); Estimated Glomerular Filt Rate 21; Potassium 4.4 mmol/L (3.3-5.1); Sodium 139 mmol/L (135-145)
== END 2024-06-10 12:15 | disposition home or self-care (01) ==
LOC: HO.HKASLDS 12:14
PROVIDERS: Visit Provider Internal Medicine Nephrology
DX: E87.20 Acidosis, unspecified (principal); N18.31 Chronic kidney disease, stage 3a; I10 Essential (primary) hypertension; E61.1 Iron deficiency; N17.9 Acute kidney failure, unspecified
CPT/HCPCS: 36415; 80051; 82310; 82565; 84520; 85025; 99212

== ENCOUNTER 2024-06-10 12:24 | Outpatient (AMB) | payer MEDICARE, OTHER, SELFPAY ==
--- NOTE | 2024-06-10 12:25 | HO.NEPHOV_ITS ---
Vital Signs 06/10/24 12:28 Height 6 ft Weight 211 lb 4 oz BMI 28.6 BP 138/60 Blood Pressure Location Lt brachial Position Sitting Pulse 61 Pulse Source Pulse Oximeter Pulse Oximetry (%) 97 Oxygen Delivery Method Room Air Intake Visit Reasons: Follow-up potassium levels Ultrasonic Solderer Required: No Accompanied by: Self / Same As Patient Allergies morphine Allergy (Verified 06/10/24 12:27) Unknown Penicillins Allergy (Verified 06/10/24 12:27) Unknown HPI Comments Details: Nathen in follow-up of his chronic kidney disease and hypertension. He recently had hospitalization 2 weeks when he presented to emergency room with shortness of breath and lower extremity edema. He was found to have acute on chronic heart failure with a preserved ejection fraction. He had a CT angiogram done at that time which showed lymph nodes in the right axilla which on biopsy showed low-grade B-cell lymphoma for which he has an appointment with Oncology. He got intravenous diuresis and was transition to torsemide. His lisinopril was discontinued given ANAI and hyperkalemia. He was started on Farxiga as well as spironolactone at that time. He had blood work done yesterday which showed a rise in serum creatinine from his baseline. He is a diabetic on medications. His blood sugar control is better. His blood pressure has been at goal. His edema is gone. He denies any nausea, vomiting, shortness of breath, proximal nocturnal dyspnea, orthopnea, cough or urinary symptoms. He is trying to be compliant with low-sodium diet and fluid intake. He does not take any nonsteroidal anti-inflammatory medication. [facility] Medical History (Updated 06/10/24 @ 13:59 by Beto Collazo MD) Heart failure B-cell lymphoma Proteinuria Hypertension Chronic kidney disease, stage 3a Surgical History (Updated 04/15/24 @ 12:24 by Zandra Maria MA) History of cataract surgery Family History Mother Heart disease Social History Alcohol intake: never Patient Tobacco Use Status: Former Tobacco user Review of Systems Const All systems reviewed & are unremarkable except as noted in HPI and below Physical Exam Const General: comfortable and no acute distress Orientation/consciousness: patient oriented x3 HEENT Head: Yes normocephalic Mouth: Normal oral and palatal mucosa present Eyes EOM: EOMs intact bilaterally Neck Neck: Yes supple Resp Auscultation: clear to auscultation bilaterally Cardio Jugular venous distension: no JVD Rate: regular rate GI Palpation (GI): Soft to palpation Auscultation: normal bowel sounds General: Yes no CVA tenderness Back/Spine/Pelvis Back: no CVA tenderness Skin General skin exam: no rashes or lesions noted Neuro General: patient oriented x3 and moves all extremities Extrem General: Yes no pedal edema Results Reviewed Nephrology Results: Hgb 10.7 g/dl (14.0-18.0) L 04/09/24 WBC 8.0 X10*3/uL (4.8-10.8) 04/09/24 Plt Count 288 X10*3/uL (160-400) 04/09/24 Sodium 144 mmol/L (135-145) 04/09/24 Potassium 3.3 mmol/L (3.3-5.1) 04/09/24 Chloride 115 mmol/L (96-108) H 04/09/24 Carbon Dioxide 20 mmol/L (22-29) L 04/09/24 BUN 39 mg/dL (9-16) H 04/09/24 Creatinine 2.01 mg/dL (0.5-1.4) H 04/09/24 Calcium 7.8 mg/dL (8.4-10.2) L 04/09/24 Assessment & Plan Assessment & Plan (1) CKD (chronic kidney disease) stage 3, GFR 30-59 ml/min: Code(s): N18.30 - Chronic kidney disease, stage 3 unspecified Category: Medical Qualifiers: Chronic kidney disease stage 3 subtype: stage 3a (GFR 45-59) Qualified Code(s): N18.31 - Chronic kidney disease, stage 3a (2) Hypertension: Code(s): I10 - Essential (primary) hypertension Category: Medical Qualifiers: Hypertension type: primary hypertension Qualified Code(s): I10 - Essential (primary) hypertension (3) ANAI (acute kidney injury): Code(s): N17.9 - Acute kidney failure, unspecified Category: Medical (4) Metabolic acidosis: Code(s): E87.20 - Acidosis, unspecified Category: Medical Plan Nathen ANAI on CKD. His recent serum creatinine yesterday most likely is due to over diuresis. I reduced his torsemide to every other day. He is off lisinopril. He is on spironolactone as well as Farxiga. His volume status was optimal. His urine output is good. He will need oral sodium bicarbonate if his serum bicarb drops. He is going to follow-up with the oncology. I ordered follow-up blood work. Further management is pending evolving data. Answered all questions. Orders: Orders Electrolytes 1 Month E87.20 - Acidosis, unspecified, I10 - Essential (primary) hypertension, N17.9 - Acute kidney failure, unspecified, N18.31 - Chronic kidney disease, stage 3a Blood Urea Nitrogen 1 Month E87.20 - Acidosis, unspecified, I10 - Essential (primary) hypertension, N17.9 - Acute kidney failure, unspecified, N18.31 - Chronic kidney disease, stage 3a Ferritin 1 Month E87.20 - Acidosis, unspecified, I10 - Essential (primary) hypertension, N17.9 - Acute kidney failure, unspecified, N18.31 - Chronic kidney disease, stage 3a IRON PROFILE 1 Month E87.20 - Acidosis, unspecified, I10 - Essential (primary) hypertension, N17.9 - Acute kidney failure, unspecified, N18.31 - Chronic kidney disease, stage 3a Calcium 1 Month E87.20 - Acidosis, unspecified, I10 - Essential (primary) hypertension, N17.9 - Acute kidney failure, unspecified, N18.31 - Chronic kidney disease, stage 3a Creatinine 1 Month E87.20 - Acidosis, unspecified, I10 - Essential (primary) hypertension, N17.9 - Acute kidney failure, unspecified, N18.31 - Chronic kidney disease, stage 3a Complete Blood Count Auto Diff 1 Month E87.20 - Acidosis, unspecified, I10 - Essential (primary) hypertension, N17.9 - Acute kidney failure, unspecified, N18.31 - Chronic kidney disease, stage 3a Coding Level of Care Code Est Pt Level 4 (37409) Diagnoses Stage 3a chronic kidney disease N18.31 Chronic kidney disease stage 3 subtype: stage 3a (GFR 45-59) Primary hypertension I10 Hypertension type: primary hypertension ANAI (acute kidney injury) N17.9 Metabolic acidosis E87.20
[2024-06-10 12:28] VITALS: BP 138/60; PULSE 61; O2SAT 97; BMI 28.6
== END 2024-06-10 12:52 | disposition home or self-care (01) ==
LOC: HO.HKAS 12:24
PROVIDERS: PCP Internal Medicine; Visit Provider Internal Medicine Nephrology
DX: N18.31 Chronic kidney disease, stage 3a (principal); I10 Essential (primary) hypertension; N17.9 Acute kidney failure, unspecified; E87.20 Acidosis, unspecified
CPT/HCPCS: 99214

== ENCOUNTER 2024-07-15 14:28 | Outpatient (REF) | payer MEDICARE, OTHER, SELFPAY ==
--- OUTSIDE RECORDS SUMMARY | 2024-07-15 15:37 | XMS_ITS | Encounter Summary ---
Author Organization [facility] Address [address] [place] [address] Care Team Providers Care Installment Dealer Name Role Phone Isac Jhaveri MD Primary Care Provider [phone] Encounter Details Date Type Department Care Team Description 10/19/2023 Social Work [facility] Oncology Services [address] [place] [address] Vidal Demarco, [facility] Social History Tobacco Use Types Packs/Day Years [...] on filedocumented in this encounter Care Teams Installment Dealer Relationship Specialty Start Date End Date Isac Jhaveri MD [facility] [address] [place] [address] [address] PCP - General Space And Missile Defense Operations 09/18/23 documented as of this encounter
--- OUTSIDE RECORDS SUMMARY | 2024-07-15 15:37 | XMS_ITS | Clinical Summary ---
Author Organization [facility] Address 100 [facility] [address] [place] [address] Phone Care Team Providers Care Inspecting Supervisor Name Role Phone Isac Jhaveri MD Primary Care Provider [phone] Allergies Active Allergy Reactions Criticality Noted Date [...] 04/21/2008 Type 2 diabetes mellitus 04/21/2005 Immunizations Immunization Administration Dates Next Due Pfizer SARS-COV-2 11/30/2020,05/07/2020,04/16/19 [...] Due Date Last Done Comments Pneumococcal Vaccine: 50+ Ye ars (2 of 2 - PCV) 05/30/2010 05/30/2009 Diabetes: Hemoglobin A1C 03/01/2021 11/16/2019 Diabetes: Ophthalmology Exam 03/01/2021 Diabetes: Pedal Pulse Checked 03/01/2021 Diabetes: Sensory Foot Exam 03/01/2021 Diabetes: Visual Foot Exam 03/01/2021 Influenza Vaccine (Season Ended) 2024 Pneumococcal Vaccine: Peds ( 0 to 5 Years) and At-Risk Patients (6 to 49 Years) Discontinued 05/30/2009 Hepatitis B Vaccine Aged Out No longe [...] % PVNMA 11/16/2019 us Rtama Conversion LAB [id number] LICITED RESULTS Final Result PVNMA from Last 3 Months or Most Recently Relevant to Health Maintenance Insurance Unicare Medicare Medicare Unicare [address] [place] [id number] Care Teams Inspecting Supervisor Relationship Specialty Start Date End Date Isac Jhaveri MD [address] [place] [address] PCP - General 03/15/20
--- OUTSIDE RECORDS SUMMARY | 2024-07-15 15:37 | XMS_ITS | Clinical Summary ---
Author Organization [facility] Address [address] [place] [address] Care Team Providers Care Pawn Shop Keeper Name Role Phone Isac Jhaveri MD Primary Care Provider [phone] Allergies Active Allergy Reactions Criticality Noted Date [...] age to complete this topic Care Teams Pawn Shop Keeper Relationship Specialty Start Date End Date Isac Jhaveri MD [address] [facility] [address] [place] [address] PCP - General Director Sales And Trade Marketing 09/18/23
[2024-07-15 18:37] LABS: Anion Gap 16 (12-20); Blood Urea Nitrogen 90 mg/dL (9-16); Carbon Dioxide 14 mmol/L (22-29); Chloride 115 mmol/L (96-108); Estimated Glomerular Filt Rate 22; Potassium 4.5 mmol/L (3.3-5.1); Sodium 140 mmol/L (135-145)
== END 2024-07-15 14:29 | disposition home or self-care (01) ==
LOC: HO.HKASLDS 14:28
PROVIDERS: Visit Provider Internal Medicine Nephrology
DX: N18.31 Chronic kidney disease, stage 3a (principal)
CPT/HCPCS: 36415; 80051; 82565; 84520

== ENCOUNTER 2024-07-17 14:33 | Outpatient (AMB) | payer OTHER, MEDICARE, SELFPAY ==
--- NOTE | 2024-07-17 15:08 | HO.NEPHOV ---
Vital Signs 07/17/24 15:11 Height 6 ft Weight 207 lb 4 oz BMI 28.1 BP 104/60 Blood Pressure Location Lt brachial Position Sitting Pulse 59 Pulse Source Pulse Oximeter Pulse Oximetry (%) 96 Oxygen Delivery Method Room Air Intake Visit Reasons: 3 mo follow up-[facility] Furnace Combination Analyst Required: No Accompanied by: Significant Other Allergies morphine Allergy (Verified 07/17/24 15:11) Unknown Penicillins Allergy (Verified 07/17/24 15:11) Unknown HPI Comments Details: Nathen in follow-up of his chronic kidney disease and hypertension. He recently had hospitalization 2 weeks when he presented to emergency room with shortness of breath and lower extremity edema. He was found to have acute on chronic heart failure with a preserved ejection fraction. He had a CT angiogram done at that time which showed lymph nodes in the right axilla which on biopsy showed low-grade B-cell lymphoma for which he has an appointment with Oncology. He got intravenous diuresis and was transition to torsemide. His lisinopril was discontinued given ANAI and hyperkalemia. He was started on Farxiga as well as spironolactone at that time. He is a diabetic on medications. His blood sugar control is better. His blood pressure has been at goal. His edema is gone. He denies any nausea, vomiting, shortness of breath, proximal nocturnal dyspnea, orthopnea, cough or urinary symptoms. He is trying to be compliant with low-sodium diet and fluid intake. He does not take any nonsteroidal anti-inflammatory medication. [facility] Medical History (Updated 06/10/24 @ 13:59 by Beto Collazo MD) Heart failure B-cell lymphoma Proteinuria Hypertension Chronic kidney disease, stage 3a Surgical History History of cataract surgery Family History Mother Heart disease Social History Alcohol intake: never Patient Tobacco Use Status: Former Tobacco user Review of Systems Const All systems reviewed & are unremarkable except as noted in HPI and below Physical Exam Vital Signs: Last Vital Signs Pulse 59 07/17/24 15:11 BP 104/60 07/17/24 15:11 Pulse Ox 96 07/17/24 15:11 Oxygen Delivery Method Room Air 07/17/24 15:11 BMI result Body Mass Index 28.1 Const General: comfortable and no acute distress Orientation/consciousness: patient oriented x3 HEENT Head: Yes normocephalic Mouth: Normal oral and palatal mucosa present Eyes EOM: EOMs intact bilaterally Neck Neck: Yes supple Resp Auscultation: clear to auscultation bilaterally Cardio Jugular venous distension: no JVD Rate: regular rate GI Palpation (GI): Soft to palpation Auscultation: normal bowel sounds General: Yes no CVA tenderness Back/Spine/Pelvis Back: no CVA tenderness Skin General skin exam: no rashes or lesions noted Neuro General: patient oriented x3 and moves all extremities Extrem General: Yes no pedal edema Results Reviewed Nephrology Results: Hgb 10.6 g/dl (14.0-18.0) L 06/10/24 WBC 6.8 X10*3/uL (4.8-10.8) 06/10/24 Plt Count 257 X10*3/uL (160-400) 06/10/24 Sodium 140 mmol/L (135-145) 07/15/24 Potassium 4.5 mmol/L (3.3-5.1) 07/15/24 Chloride 115 mmol/L (96-108) H 07/15/24 Carbon Dioxide 14 mmol/L (22-29) L 07/15/24 BUN 90 mg/dL (9-16) H 07/15/24 Creatinine 2.74 mg/dL (0.5-1.4) H 07/15/24 Calcium 8.1 mg/dL (8.4-10.2) L 06/10/24 Assessment & Plan Assessment & Plan (1) Metabolic acidosis: Code(s): E87.20 - Acidosis, unspecified Category: Medical (2) Hypertension: Code(s): I10 - Essential (primary) hypertension Category: Medical Qualifiers: Hypertension type: primary hypertension Qualified Code(s): I10 - Essential (primary) hypertension (3) CKD (chronic kidney disease) stage 3, GFR 30-59 ml/min: Code(s): N18.30 - Chronic kidney disease, stage 3 unspecified Category: Medical Qualifiers: Chronic kidney disease stage 3 subtype: stage 3a (GFR 45-59) Qualified Code(s): N18.31 - Chronic kidney disease, stage 3a Plan Nathen ANAI on CKD. His recent serum creatinine is stable. He is on torsemide . He is off lisinopril. He is on spironolactone as well as Farxiga. His volume status was optimal. His urine output is good. I started him on PO oral sodium bicarbonate 650 mg bid . His metabolic acidosis is a combination of renal issues as well as due to Farxiga. He is going to follow-up with the oncology. I ordered follow-up blood work. Further management is pending evolving data. Answered all questions Orders: Orders Creatinine 6 Weeks E87.20 - Acidosis, unspecified, I10 - Essential (primary) hypertension, N18.31 - Chronic kidney disease, stage 3a Blood Urea Nitrogen 6 Weeks E87.20 - Acidosis, unspecified, I10 - Essential (primary) hypertension, N18.31 - Chronic kidney disease, stage 3a Electrolytes 6 Weeks E87.20 - Acidosis, unspecified, I10 - Essential (primary) hypertension, N18.31 - Chronic kidney disease, stage 3a Medications: New sodium bicarbonate 650 mg PO BID 30 tabs 0RF Coding Level of Care Code Est Pt Level 4 (89884) Diagnoses Metabolic acidosis E87.20 Primary hypertension I10 Hypertension type: primary hypertension Stage 3a chronic kidney disease N18.31 Chronic kidney disease stage 3 subtype: stage 3a (GFR 45-59)
[2024-07-17 15:11] VITALS: BP 104/60; PULSE 59; O2SAT 96; BMI 28.1
--- OUTSIDE RECORDS SUMMARY | 2024-07-17 15:11 | XMS_ITS | Clinical Summary ---
Author Organization [facility] Address [address] [place] [address] Care Team Providers Care Alarm Installation Technician Name Role Phone Isac Jhaveri MD Primary Care Provider [phone] Allergies Active Allergy Reactions Criticality Noted Date [...] age to complete this topic Care Teams Alarm Installation Technician Relationship Specialty Start Date End Date Isac Jhaveri MD [address] [facility] [address] [place] [address] PCP - General Health Tech 09/18/23
--- OUTSIDE RECORDS SUMMARY | 2024-07-17 15:11 | XMS_ITS | Encounter Summary ---
Author Organization [facility] Address [address] [place] [address] Care Team Providers Care Television Inspector Name Role Phone Isac Jhaveri MD Primary Care Provider [phone] Encounter Details Date Type Department Care Team Description 10/19/2023 Social Work [facility] Oncology Services [address] [place] [address] Vidal Demarco, [facility] Social History Tobacco Use Types Packs/Day Years [...] on filedocumented in this encounter Care Teams Television Inspector Relationship Specialty Start Date End Date Isac Jhaveri MD [facility] [address] [place] [address] [address] PCP - General Civil Estimator 09/18/23 documented as of this encounter
--- OUTSIDE RECORDS SUMMARY | 2024-07-17 15:11 | XMS_ITS | Clinical Summary ---
Author Organization [facility] Address 100 [facility] [address] 0 [place] [address] Phone Care Team Providers Care Mold Worker Name Role Phone Isac Jhaveri MD Primary Care Provider [phone] Allergies Active Allergy Reactions Criticality Noted Date [...] % PVNMA 11/16/2019 us Rtama Conversion LAB [id number] LICITED RESULTS Final Result PVNMA from Last 3 Months or Most Recently Relevant to Health Maintenance Insurance Unicare Medicare Medicare Unicare [address] [place] [id number] Care Teams Mold Worker Relationship Specialty Start Date End Date Isac Jhaveri MD [address] [place] [address] PCP - General 03/15/20
== END 2024-07-17 15:37 | disposition home or self-care (01) ==
LOC: HO.HKAS 14:34
PROVIDERS: PCP Internal Medicine; Visit Provider Internal Medicine Nephrology
DX: E87.20 Acidosis, unspecified (principal); I10 Essential (primary) hypertension; N18.31 Chronic kidney disease, stage 3a
CPT/HCPCS: 99214

== ENCOUNTER → 2024-07-17 14:33 | Outpatient (BNVA) | payer OTHER, MEDICARE, SELFPAY | PROVIDERS: PCP Internal Medicine; Visit Provider Internal Medicine Nephrology ==

== ENCOUNTER 2024-09-29 08:54 | Day surgery (SDC) | payer MEDICARE, OTHER, SELFPAY ==
--- OUTSIDE RECORDS SUMMARY | 2024-09-08 15:07 | XMS_ITS | Clinical Summary ---
Author Organization [facility] Address 100 [facility] [address] 0 [place] [address] Phone Care Team Providers Care Cartoon Animator Name Role Phone Isac Jhaveri MD Primary Care Provider [phone] Allergies Active Allergy Reactions Criticality Noted Date [...] Visual Foot Exam 03/01/2021 Influenza Vaccine (#1) 2024 Pneumococcal Vaccine: Peds ( 0 to [...] % PVNMA 11/16/2019 us Rtama Conversion LAB [id number] LICITED RESULTS Final Result PVNMA from Last 3 Months or Most Recently Relevant to Health Maintenance Insurance Unicare Medicare Medicare Unicare [address] [place] [id number] Care Teams Cartoon Animator Relationship Specialty Start Date End Date Isac Jhaveri MD [address] [place] [address] PCP - General 03/15/20
--- OUTSIDE RECORDS SUMMARY | 2024-09-08 15:07 | XMS_ITS | Clinical Summary ---
Author Organization [facility] Address [address] [place] [address] Care Team Providers Care General House Worker Name Role Phone Isac Jhaveri MD Primary Care Provider [phone] Allergies Active Allergy Reactions Criticality Noted Date [...] 77 11/08/2023 10:37 AM EDT Temperature 36.1 C (96.9 F) 11/08/2023 10:37 AM EDT Respiratory Rate - - Oxygen [...] 05/07/2020, Additional history exists Influenza Vaccine (#1) 2024 Hepatitis B Vaccines Aged Out No long er eligible based on patient's age to complete this topic RSV Ped < 20 months Aged Out No longe r eligible based on patient's age to complete this topic Care Teams General House Worker Relationship Specialty Start Date End Date Isac Jhaveri MD [address] [facility] [address] [place] [address] PCP - General Textile Colorist Formulator 09/18/23
[2024-09-29] VITALS (14 sets, daily range): BP systolic 125–157; BP diastolic 44–65; PULSE 52–61; RESP 12–16; TEMP 36.1–36.8; O2SAT 95–100; BMI 27.4
--- NOTE | ~2024-09-29 | CT_ITS ---
PROCEDURE: CT GUIDED BIOPSY, KIDNEY CLINICAL INFORMATION: Chronic kidney disease, stage IIIa. COMPARISON: None available. TECHNIQUE: Following explaining CT fluoroscopy guided renal biopsy procedure, benefits and risk, a written consent was obtained. Patient was placed prone on CT table and preliminary CT imaging was performed. An axial image was selected and markers placed along the posterior aspect of right abdomen repeat imaging obtained. An optimal marker was selected on the skin and this site was marked. The marked site was cleaned and draped in usual sterile manner. 1% lidocaine was injected at puncture site. Through a small skin incision a 20-gauge guide needle was advanced from the skin marker into the lower pole cortex right kidney. Coaxially a 20-gauge needle was advanced and it 3 pass core biopsy of kidney was performed. Gelfoam was infused through the guide needle to achieve hemostasis. Repeat CT imaging was obtained post biopsy. The guide needle was removed and complete hemostasis achieved at puncture site. Sterile dressing applied post procedure. IV sedation was utilized and patient monitored by IR nurse and IR physician during exam. This CT examination was performed using dose optimization techniques as appropriate, variously including the following: *Automated exposure control *Adjustment of mA and/or kV according to patient size (this includes techniques or standardized protocols for targeted exams where dose is matched to indication/reason for exam; i.e. extremities or head) *Use of iterative reconstruction technique FINDINGS: On preliminary CT imaging the right kidney slightly low-lying compared to left. There is normal cortical thickness. No radiopaque renal calculi seen. There is punctate vascular calcification left kidney. Incidental finding of diffuse colonic diverticulosis. A 3 pass core biopsy of lower pole right kidney cortex was performed. Postprocedure repeat CT imaging revealed small area of perinephric bleed. CT/CT biopsy renal LT IMPRESSION: Successful CT fluoroscopy guided right renal lower pole core biopsy performed. Fluoroscopy time: 484 mGy/cm. Electronically signed by: Eric Rousseau MD 09/29/2024 03:27 PM EDT
[2024-09-29 09:26] LABS: Glucose, Whole Blood 93 mg/dL (60-115)
[2024-09-29 09:35] LABS: MANUAL DIFF FLAG NO
[2024-09-29 09:36] LABS: Hematocrit 31.6 % (42.0-52.0); Hemoglobin 10.9 g/dl (14.0-18.0); Imm Gran Abs Auto 0.06 X10*3/uL (0.00-0.03); Imm Gran Pct Auto 0.7 % (0.0-0.4); Lymphocytes Absolute Auto 1.0 X10*3/uL (1.2-4.9); Mean Corpuscular HGB Conc 34.5 g/dl (31.0-36.0); Mean Corpuscular Hemoglobin 29.3 pg (27.0-33.0); Mean Corpuscular Volume 84.9 fL (80.0-98.0); NRBC Abs Auto 0.000 X10*3/uL (0.0-0.012); NRBC Pct Auto 0.0 /100WBC (0.0-0.2); Platelet Count 256 X10*3/uL (160-400); Red Blood Count 3.72 X10*6/uL (4.60-5.80); White Blood Count 8.9 X10*3/uL (4.8-10.8)
[2024-09-29 09:44] LABS: INTERNATIONAL NORM RATIO 0.9 (0.9-1.1); Prothrombin Time 10.6 SEC (10.9-12.4)
[2024-09-29 09:47] LABS: Partial Thromboplastin Time 33.8 SEC (26.0-36.8)
[2024-09-29 10:03] LABS: Anion Gap 12 (12-20); Blood Urea Nitrogen 69 mg/dL (9-16); Calcium 8.0 mg/dL (8.4-10.2); Carbon Dioxide 16 mmol/L (22-29); Chloride 120 mmol/L (96-108); Creatinine Clr Calc Pharmacy 22.2; Estimated Glomerular Filt Rate 22; Potassium 4.2 mmol/L (3.3-5.1); Sodium 144 mmol/L (135-145)
== END 2024-09-29 13:21 | disposition home or self-care (01) ==
PROVIDERS: Radiology Diagnostic Radiology; PCP Internal Medicine; Visit Provider Internal Medicine Nephrology
DX: I13.0 Hypertensive heart and chronic kidney disease with heart failure and stage 1 through stage 4 chronic kidney disease, or unspecified chronic kidney disease (principal); E11.22 Type 2 diabetes mellitus with diabetic chronic kidney disease; E11.21 Type 2 diabetes mellitus with diabetic nephropathy; I50.9 Heart failure, unspecified; Z79.4 Long term (current) use of insulin; N18.31 Chronic kidney disease, stage 3a; E87.20 Acidosis, unspecified; N26.9 Renal sclerosis, unspecified; C85.10 Unspecified B-cell lymphoma, unspecified site; Z79.84 Long term (current) use of oral hypoglycemic drugs; R79.1 Abnormal coagulation profile; Z88.2 Allergy status to sulfonamides; Z88.0 Allergy status to penicillin; Z87.891 Personal history of nicotine dependence
CPT/HCPCS: 36415; 50200; 77012; 80048; 82947; 85025; 85610; 85730; 86850; 86900; 86901; 88300; 88305; 88313; 88346; 88348; 88350; 99152; J2003; J2250; J3010

== ENCOUNTER → 2024-09-29 10:23 | Outpatient (BNV) | payer MEDICARE, OTHER, SELFPAY | PROVIDERS: PCP Internal Medicine; Visit Provider Radiology Diagnostic Radiology | DX: N18.31 Chronic kidney disease, stage 3a (principal) | CPT/HCPCS: 50200; 77012 ==

== ENCOUNTER 2024-10-22 10:06 | Outpatient (REF) | payer MEDICARE, OTHER, SELFPAY ==
--- OUTSIDE RECORDS SUMMARY | 2024-10-22 11:13 | XMS_ITS | Clinical Summary ---
Author Organization [facility] Address 100 [facility] [address] 0 [place] [address] Phone Care Team Providers Care Cost Recovery Technician Name Role Phone Isca Jhaveri MD Primary Care Provider [phone] Allergies Active Allergy Reactions Criticality Noted Date [...] % PVNMA 11/16/2019 us Rtama Conversion LAB [id number] LICITED RESULTS Final Result PVNMA from Last 3 Months or Most Recently Relevant to Health Maintenance Insurance * Guarantor: Nathen Toussaint Fernando Account Type Relation to Patient Date of Phone Billing Address Personal/Family Self 1940 [id number] [facility] [address] [place] [address] Unicare Medicare Medicare Unicare [address] [place] [id number] Care Teams Cost Recovery Technician Relationship Specialty Start Date End Date Isac Jhaveri MD [address] [place] [address] PCP - General 03/15/20
--- OUTSIDE RECORDS SUMMARY | 2024-10-22 11:13 | XMS_ITS | Clinical Summary ---
Author Organization [facility] Address [address] [place] [address] Care Team Providers Care Animal Ride Manager Name Role Phone Isac Jhaveri MD Primary Care Provider [phone] Allergies Active Allergy Reactions Criticality Noted Date [...] age to complete this topic Care Teams Animal Ride Manager Relationship Specialty Start Date End Date Isac Jhaveri MD [address] [facility] 102 [place] [address] PCP - General Automotive Tire Worker 09/18/23
[2024-10-22 12:32] LABS: MANUAL DIFF FLAG NO
[2024-10-22 12:40] LABS: Hematocrit 31.2 % (42.0-52.0); Hemoglobin 10.4 g/dl (14.0-18.0); Imm Gran Abs Auto 0.07 X10*3/uL (0.00-0.03); Imm Gran Pct Auto 0.8 % (0.0-0.4); Lymphocytes Absolute Auto 1.0 X10*3/uL (1.2-4.9); Mean Corpuscular HGB Conc 33.3 g/dl (31.0-36.0); Mean Corpuscular Hemoglobin 29.1 pg (27.0-33.0); Mean Corpuscular Volume 87.2 fL (80.0-98.0); NRBC Abs Auto 0.000 X10*3/uL (0.0-0.012); NRBC Pct Auto 0.0 /100WBC (0.0-0.2); Platelet Count 270 X10*3/uL (160-400); Red Blood Count 3.58 X10*6/uL (4.60-5.80); White Blood Count 9.0 X10*3/uL (4.8-10.8)
[2024-10-22 12:44] LABS: INTERNATIONAL NORM RATIO 0.9 (0.9-1.1); Prothrombin Time 10.0 SEC (10.9-12.4)
[2024-10-22 13:08] LABS: Anion Gap 14 (12-20); Blood Urea Nitrogen 65 mg/dL (9-16); Calcium 7.9 mg/dL (8.4-10.2); Carbon Dioxide 15 mmol/L (22-29); Chloride 116 mmol/L (96-108); Estimated Glomerular Filt Rate 21; Iron 64 mcg/dL (45-160); Percent Iron Saturation 30 % (15-50); Potassium 4.3 mmol/L (3.3-5.1); Sodium 141 mmol/L (135-145); Total Iron Binding Capacity 213 mcg/dL (228-428); Unsaturated Iron Binding 149 ug/dL
[2024-10-22 13:13] LABS: Ferritin 157 ng/mL (20-250)
== END 2024-10-22 10:07 | disposition home or self-care (01) ==
LOC: HO.HKASLDS 10:06
PROVIDERS: Visit Provider Internal Medicine Nephrology
DX: I12.9 Hypertensive chronic kidney disease with stage 1 through stage 4 chronic kidney disease, or unspecified chronic kidney disease (principal); N18.31 Chronic kidney disease, stage 3a; E87.20 Acidosis, unspecified; N17.9 Acute kidney failure, unspecified
CPT/HCPCS: 36415; 80051; 82310; 82565; 82728; 83540; 84520; 85025; 85610

== ENCOUNTER 2024-10-23 14:04 | Outpatient (AMB) | payer OTHER, MEDICARE, SELFPAY ==
--- NOTE | 2024-10-23 14:07 | HO.NEPHOV ---
Vital Signs 10/23/24 14:11 Height 6 ft Weight 209 lb 8 oz BMI 28.4 BP 130/52 L Blood Pressure Location Rt brachial Position Sitting Pulse 67 Pulse Source Pulse Oximeter Pulse Oximetry (%) 96 Oxygen Delivery Method Room Air Intake Visit Reasons: 2mon follow-up w/labs-Conf Can Filling Machine Operator Required: No Accompanied by: Significant Other Allergies morphine Allergy (Verified 10/23/24 14:11) Unknown Penicillins Allergy (Verified 10/23/24 14:11) Unknown HPI Comments Details: Nathen was seen in follow-up of his chronic kidney disease and hypertension. He recently had a fall and sustained scaphoid fracture He was found to have acute on chronic heart failure with a preserved ejection fraction. 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 He is a diabetic on medications. He had a renal biopsy which showed diabetic changes. His blood sugar control is better. His blood pressure has been at goal. His edema is gone. He is due to have myocardial biopsy. He denies any nausea, vomiting, shortness of breath, proximal nocturnal dyspnea, orthopnea, cough or urinary symptoms. He is trying to be compliant with low-sodium diet and fluid intake. He does not take any nonsteroidal anti-inflammatory medication. [facility] Medical History (Updated 10/23/24 @ 18:43 by Beto Collazo MD) Heart failure B-cell lymphoma Proteinuria Hypertension Chronic kidney disease, stage 3a Surgical History History of cataract surgery Family History Mother Heart disease Social History Alcohol intake: never Patient Tobacco Use Status: Former Tobacco user Review of Systems Const All systems reviewed & are unremarkable except as noted in HPI and below Physical Exam Vital Signs: Last Vital Signs Pulse 67 10/23/24 14:11 BP 130/52 L 10/23/24 14:11 Pulse Ox 96 10/23/24 14:11 Oxygen Delivery Method Room Air 10/23/24 14:11 BMI result Body Mass Index 28.4 Const General: comfortable and no acute distress Orientation/consciousness: patient oriented x3 HEENT Head: Yes normocephalic Mouth: Normal oral and palatal mucosa present Eyes EOM: EOMs intact bilaterally Neck Neck: Yes supple Resp Auscultation: clear to auscultation bilaterally Cardio Jugular venous distension: no JVD Rate: regular rate GI Palpation (GI): Soft to palpation Auscultation: normal bowel sounds General: Yes no CVA tenderness Back/Spine/Pelvis Back: no CVA tenderness Skin General skin exam: no rashes or lesions noted Neuro General: patient oriented x3 and moves all extremities Extrem General: Yes no pedal edema Results Reviewed Nephrology Results: Hgb, (14.0-18.0) 10.4 g/dl L 10/22/24 WBC, (4.8-10.8) 9.0 X10*3/uL 10/22/24 Plt Count, (160-400) 270 X10*3/uL 25 Sodium, (135-145) 141 mmol/L 25 Potassium, (3.3-5.1) 4.3 mmol/L 25 Chloride, (96-108) 116 mmol/L H 10/22/24 Carbon Dioxide, (22-29) 15 mmol/L L 25 BUN, (9-16) 65 mg/dL H 25 Creatinine, (0.5-1.4) 2.90 mg/dL H 25 Calcium, (8.4-10.2) 7.9 mg/dL L 10/22/24 Assessment & Plan Assessment & Plan (1) CKD (chronic kidney disease) stage 3, GFR 30-59 ml/min: Code(s): N18.30 - Chronic kidney disease, stage 3 unspecified Category: Medical Qualifiers: Chronic kidney disease stage 3 subtype: stage 3a (GFR 45-59) Qualified Code(s): N18.31 - Chronic kidney disease, stage 3a (2) Hypertension: Code(s): I10 - Essential (primary) hypertension Category: Medical Qualifiers: Hypertension type: primary hypertension Qualified Code(s): I10 - Essential (primary) hypertension (3) Vitamin D deficiency: Code(s): E55.9 - Vitamin D deficiency, unspecified Category: Medical (4) Metabolic acidosis: Code(s): E87.20 - Acidosis, unspecified Category: Medical (5) Diabetic nephropathy: Code(s): E11.21 - Type 2 diabetes mellitus with diabetic nephropathy Category: Medical Qualifiers: Diabetes mellitus type: type 2 Qualified Code(s): E11.21 - Type 2 diabetes mellitus with diabetic nephropathy Plan 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 His recent serum creatinine is stable. He is on torsemide . He is off lisinopril. He is on spironolactone . His volume status was optimal. His urine output is good. I started him on PO oral sodium bicarbonate 650 mg daily for metabolic acidosis. He is going to have endomyocardial biopsy and should follow-up with oncology. I ordered follow-up blood work. Further management is pending evolving data. Answered all questions Orders: Orders Electrolytes 2 Months E11.21 - Type 2 diabetes mellitus with diabetic nephropathy, E55.9 - Vitamin D deficiency, unspecified, E87.20 - Acidosis, unspecified, I10 - Essential (primary) hypertension, N18.31 - Chronic kidney disease, stage 3a Blood Urea Nitrogen 2 Months E11.21 - Type 2 diabetes mellitus with diabetic nephropathy, E55.9 - Vitamin D deficiency, unspecified, E87.20 - Acidosis, unspecified, I10 - Essential (primary) hypertension, N18.31 - Chronic kidney disease, stage 3a Creatinine 2 Months E11.21 - Type 2 diabetes mellitus with diabetic nephropathy, E55.9 - Vitamin D deficiency, unspecified, E87.20 - Acidosis, unspecified, I10 - Essential (primary) hypertension, N18.31 - Chronic kidney disease, stage 3a Medications: New sodium bicarbonate 650 mg PO DAILY 90 tabs 2RF Coding Level of Care Code Est Pt Level 4 (08094) Diagnoses Stage 3a chronic kidney disease N18.31 Chronic kidney disease stage 3 subtype: stage 3a (GFR 45-59) Primary hypertension I10 Hypertension type: primary hypertension Vitamin D deficiency E55.9 Metabolic acidosis E87.20 Diabetic nephropathy associated with type 2 diabetes mellitus E11.21 Diabetes mellitus type: type 2
[2024-10-23 14:11] VITALS: BP 130/52; PULSE 67; O2SAT 96; BMI 28.4
--- OUTSIDE RECORDS SUMMARY | 2024-10-23 14:12 | XMS_ITS | Clinical Summary ---
Author Organization [facility] Address 100 [facility] [address] 0 [place] [address] Phone Care Team Providers Care Lapidary Apprentice Name Role Phone Isac Jhaveri MD Primary Care Provider [phone] Allergies Active Allergy Reactions Criticality Noted Date [...] % PVNMA 11/16/2019 us Rtama Conversion LAB [id number] LICITED RESULTS Final Result PVNMA from Last 3 Months or Most Recently Relevant to Health Maintenance Insurance Unicare Medicare Medicare Unicare [address] [place] [id number] Care Teams Lapidary Apprentice Relationship Specialty Start Date End Date Isac Jhaveri MD [address] [place] [address] PCP - General 03/15/20
--- OUTSIDE RECORDS SUMMARY | 2024-10-23 14:12 | XMS_ITS | Clinical Summary ---
Author Organization [facility] Address [address] [place] [address] Care Team Providers Care Primer Inserting Machine Operator Name Role Phone Isac Jhaveri MD Primary Care Provider [phone] Allergies Active Allergy Reactions Criticality Noted Date [...] age to complete this topic Care Teams Primer Inserting Machine Operator Relationship Specialty Start Date End Date Isac Jhaveri MD [address] [facility] 102 [place] [address] PCP - General Dispatcher Maintenance 09/18/23
== END 2024-10-23 14:37 | disposition home or self-care (01) ==
LOC: HO.HKAS 14:05
PROVIDERS: PCP Internal Medicine; Visit Provider Internal Medicine Nephrology
DX: N18.31 Chronic kidney disease, stage 3a (principal); I10 Essential (primary) hypertension; E55.9 Vitamin D deficiency, unspecified; E87.20 Acidosis, unspecified; E11.21 Type 2 diabetes mellitus with diabetic nephropathy
CPT/HCPCS: 99214

== ENCOUNTER 2024-12-25 13:52 | Outpatient (REF) | payer MEDICARE, OTHER, SELFPAY ==
--- OUTSIDE RECORDS SUMMARY | 2024-12-25 17:47 | XMS_ITS | Encounter Summary ---
Author Organization [facility] Address [address] [place] [address] Care Team Providers Care Comfort Advisor Name Role Phone Isac Jhaveri MD Primary Care Provider [phone] Encounter Details Date Type Department Care Team Description 10/19/2023 Social Work [facility] Oncology Services [address] [place] [address] Vidal Demarco, [facility] Social History Tobacco Use Types Packs/Day Years [...] on filedocumented in this encounter Care Teams Comfort Advisor Relationship Specialty Start Date End Date Isac Jhaveri MD [facility] IV[address] [address] PCP - General Lead Network Engineer 09/18/23 documented as of this encounter
--- OUTSIDE RECORDS SUMMARY | 2024-12-25 17:47 | XMS_ITS | Clinical Summary ---
Author Organization [facility] Address 100 [facility] [address] [place] [address] Phone Care Team Providers Care Change Management Facilitator Name Role Phone Isac Jhaveri MD Primary Care Provider [phone] Allergies Active Allergy Reactions Criticality Noted Date [...] chronic kidney disease 05/03/2020 Essential hypertension 05/03/2020 Post-traumatic stress disorder 04/21/2008 Dyslipidemia 04/21/2008 Type 2 [...] % PVNMA 11/16/2019 us Rtama Conversion LAB [id number] LICITED RESULTS Final Result PVNMA from Last 3 Months or Most Recently Relevant to Health Maintenance Insurance [address] [place] [address] Unicare Medicare Medicare Unicare [place] [id number] [address] [place] [id number] Care Teams Change Management Facilitator Relationship Specialty Start Date End Date Isac Jhaveri MD [address] [place] [address] PCP - General 03/15/20
--- OUTSIDE RECORDS SUMMARY | 2024-12-25 17:47 | XMS_ITS | Clinical Summary ---
Author Organization [facility] Address [address] [place] [address] Care Team Providers Care Healthcare Consulting Manager Name Role Phone Isac Jhaveri MD Primary Care Provider [phone] Allergies Active Allergy Reactions Criticality Noted Date [...] 2) 06/04/2018 04/09/2018 COVID-19 Vaccine ( season) 2024 06/28/2021, 11/30/2020, 05/07/2020, Additional history exists Influenza Vaccine (#1) 2024 Hepatitis B Vaccines Aged Out No long er eligible based on patient's age to complete this topic RSV Ped < 20 months Aged Out No longe r eligible based on patient's age to complete this topic Care Teams Healthcare Consulting Manager Relationship Specialty Start Date End Date Isac Jhaveri MD [address] [facility] [address] [place] [address] PCP - General Railroad Crane Operator 09/18/23
[2024-12-25 18:11] LABS: Anion Gap 13 (12-20); Blood Urea Nitrogen 67 mg/dL (9-16); Carbon Dioxide 17 mmol/L (22-29); Chloride 118 mmol/L (96-108); Estimated Glomerular Filt Rate 20; Potassium 4.0 mmol/L (3.3-5.1); Sodium 144 mmol/L (135-145)
== END 2024-12-25 13:53 | disposition home or self-care (01) ==
LOC: HO.HKASLDS 13:52
PROVIDERS: PCP Internal Medicine; Visit Provider Internal Medicine Nephrology
DX: I12.9 Hypertensive chronic kidney disease with stage 1 through stage 4 chronic kidney disease, or unspecified chronic kidney disease (principal); E11.22 Type 2 diabetes mellitus with diabetic chronic kidney disease; N18.31 Chronic kidney disease, stage 3a; E55.9 Vitamin D deficiency, unspecified; E87.20 Acidosis, unspecified
CPT/HCPCS: 36415; 80051; 82565; 84520

== ENCOUNTER 2024-12-30 14:16 | Outpatient (AMB) | payer OTHER, MEDICARE, SELFPAY ==
--- NOTE | 2024-12-30 14:19 | HO.NEPHOV ---
Vital Signs 12/30/24 14:20 Height 6 ft Weight 210 lb 8 oz BMI 28.5 BP 130/50 L Blood Pressure Location Lt brachial Position Sitting Pulse 53 Pulse Source Pulse Oximeter Pulse Oximetry (%) 97 Oxygen Delivery Method Room Air Intake Visit Reasons: 2mnth w labs-Conf Experiential Therapist Required: No Accompanied by: Self / Same As Patient Allergies morphine Allergy (Verified 12/30/24 14:19) Unknown Penicillins Allergy (Verified 12/30/24 14:19) Unknown HPI Comments Details: Nathen was seen in follow-up of his chronic kidney disease and hypertension. He was found to have acute on chronic heart failure with a preserved ejection fraction. 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 He is a diabetic on medications. He had a renal biopsy which showed diabetic changes. His blood sugar control is better. His blood pressure has been at goal. His edema is gone. He is due to have myocardial biopsy. He denies any nausea, vomiting, shortness of breath, proximal nocturnal dyspnea, orthopnea, cough or urinary symptoms. He is trying to be compliant with low-sodium diet and fluid intake. He does not take any nonsteroidal anti-inflammatory medication. [facility] Medical History (Updated 10/23/24 @ 18:43 by Beto Collazo MD) Heart failure B-cell lymphoma Proteinuria Hypertension Chronic kidney disease, stage 3a Surgical History History of cataract surgery Family History Mother Heart disease Social History Alcohol intake: never Patient Tobacco Use Status: Former Tobacco user Review of Systems Const All systems reviewed & are unremarkable except as noted in HPI and below Physical Exam Vital Signs: Last Vital Signs Pulse 53 12/30/24 14:20 BP 130/50 L 12/30/24 14:20 Pulse Ox 97 12/30/24 14:20 Oxygen Delivery Method Room Air 12/30/24 14:20 BMI result Body Mass Index 28.5 Const General: comfortable and no acute distress Orientation/consciousness: patient oriented x3 HEENT Head: Yes normocephalic Mouth: Normal oral and palatal mucosa present Eyes EOM: EOMs intact bilaterally Neck Neck: Yes supple Resp Auscultation: clear to auscultation bilaterally Cardio Jugular venous distension: no JVD Rate: regular rate GI Palpation (GI): Soft to palpation Auscultation: normal bowel sounds General: Yes no CVA tenderness Back/Spine/Pelvis Back: no CVA tenderness Skin General skin exam: no rashes or lesions noted Neuro General: patient oriented x3 and moves all extremities Extrem General: Yes no pedal edema Results Reviewed Nephrology Results: Hgb, (14.0-18.0) 10.4 g/dl L 10/22/24 WBC, (4.8-10.8) 9.0 X10*3/uL 10/22/24 Plt Count, (160-400) 270 X10*3/uL 10/22/24 Sodium, (135-145) 144 mmol/L 12/25/24 Potassium, (3.3-5.1) 4.0 mmol/L 12/25/24 Chloride, (96-108) 118 mmol/L H 12/25/24 Carbon Dioxide, (22-29) 17 mmol/L L 12/25/24 BUN, (9-16) 67 mg/dL H 12/25/24 Creatinine, (0.5-1.4) 2.95 mg/dL H 12/25/24 Calcium, (8.4-10.2) 7.9 mg/dL L 10/22/24 Assessment & Plan Assessment & Plan (1) Hypertension: Code(s): I10 - Essential (primary) hypertension Category: Medical Qualifiers: Hypertension type: primary hypertension Qualified Code(s): I10 - Essential (primary) hypertension (2) Vitamin D deficiency: Code(s): E55.9 - Vitamin D deficiency, unspecified Category: Medical (3) CKD (chronic kidney disease) stage 3, GFR 30-59 ml/min: Code(s): N18.30 - Chronic kidney disease, stage 3 unspecified Category: Medical Qualifiers: Chronic kidney disease stage 3 subtype: stage 3a (GFR 45-59) Qualified Code(s): N18.31 - Chronic kidney disease, stage 3a (4) Diabetic nephropathy: Code(s): E11.21 - Type 2 diabetes mellitus with diabetic nephropathy Category: Medical Qualifiers: Diabetes mellitus type: type 2 Qualified Code(s): E11.21 - Type 2 diabetes mellitus with diabetic nephropathy (5) Proteinuria: Code(s): R80.9 - Proteinuria, unspecified Category: Medical Qualifiers: Proteinuria type: other Qualified Code(s): R80.8 - Other proteinuria (6) Metabolic acidosis: Code(s): E87.20 - Acidosis, unspecified Category: Medical Plan 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 His recent serum creatinine is stable. He is on torsemide . He is off lisinopril. He is on spironolactone . His volume status was optimal. His urine output is good. He should continue on PO oral sodium bicarbonate 650 mg daily for metabolic acidosis. He had endomyocardial biopsy and should follow-up with oncology. Further management is pending evolving data. Answered all questions Orders: Orders Creatinine 2 Months E11. - Type 2 diabetes mellitus with diabetic nephropathy, E55.9 - Vitamin D deficiency, unspecified, E87.20 - Acidosis, unspecified, I10 - Essential (primary) hypertension, N18.31 - Chronic kidney disease, stage 3a, R80.8 - Other proteinuria Blood Urea Nitrogen 2 Months E11. - Type 2 diabetes mellitus with diabetic nephropathy, E55.9 - Vitamin D deficiency, unspecified, E87.20 - Acidosis, unspecified, I10 - Essential (primary) hypertension, N18.31 - Chronic kidney disease, stage 3a, R80.8 - Other proteinuria Electrolytes 2 Months E11.21 - Type 2 diabetes mellitus with diabetic nephropathy, E55.9 - Vitamin D deficiency, unspecified, E87.20 - Acidosis, unspecified, I10 - Essential (primary) hypertension, N18.31 - Chronic kidney disease, stage 3a, R80.8 - Other proteinuria Coding Level of Care Code Est Pt Level 4 (42790) Diagnoses Primary hypertension I10 Hypertension type: primary hypertension Vitamin D deficiency E55.9 Stage 3a chronic kidney disease N18.31 Chronic kidney disease stage 3 subtype: stage 3a (GFR 45-59) Diabetic nephropathy associated with type 2 diabetes mellitus E11. Diabetes mellitus type: type 2 Other proteinuria R80.8 Proteinuria type: other Metabolic acidosis E87.20
[2024-12-30 14:20] VITALS: BP 130/50; PULSE 53; O2SAT 97; BMI 28.5
--- OUTSIDE RECORDS SUMMARY | 2024-12-30 18:37 | XMS_ITS | Clinical Summary ---
Author Organization [facility] Address 100 [facility] [address] [place] [address] Phone Care Team Providers Care Email Marketing Processor Name Role Phone Isac Jhaveri MD Primary Care Provider [phone] Allergies Active Allergy Reactions Criticality Noted Date [...] % PVNMA 11/16/2019 us Rtama Conversion LAB [id number] LICITED RESULTS Final Result PVNMA from Last 3 Months or Most Recently Relevant to Health Maintenance Insurance [address] [place] [address] Unicare Medicare Medicare Unicare [place] [id number] [address] [place] [id number] Care Teams Email Marketing Processor Relationship Specialty Start Date End Date Isac Jhaveri MD [address] [place] [address] PCP - General 03/15/20
--- OUTSIDE RECORDS SUMMARY | 2024-12-30 18:37 | XMS_ITS | Encounter Summary ---
Author Organization [facility] Address [address] [place] [address] Care Team Providers Care Dental Ceramist Helper Name Role Phone Isac Jhaveri MD Primary Care Provider [phone] Encounter Details Date Type Department Care Team Description 10/19/2023 Social Work [facility] Oncology Services [address] [place] [address] Vidal Demarco, [facility] [...] on filedocumented in this encounter Care Teams Dental Ceramist Helper Relationship Specialty Start Date End Date Isac Jhaveri MD [facility] [address] [address] PCP - General Supervising Broker 09/18/23 documented as of this encounter
--- OUTSIDE RECORDS SUMMARY | 2024-12-30 18:37 | XMS_ITS | Clinical Summary ---
Author Organization [facility] Address [address] [place] [address] Care Team Providers Care Cultural Anthropology Professor Name Role Phone Isac Jhaveri MD Primary Care Provider [phone] Allergies Active Allergy Reactions Criticality Noted Date [...] age to complete this topic Care Teams Cultural Anthropology Professor Relationship Specialty Start Date End Date Isac Jhaveri MD [address] [facility] [address] [place] [address] PCP - General Wet And Dry Sugar Bin Operator 09/18/23
== END 2024-12-30 14:34 | disposition home or self-care (01) ==
LOC: HO.HKAS 14:16
PROVIDERS: PCP Internal Medicine; Visit Provider Internal Medicine Nephrology
DX: I10 Essential (primary) hypertension (principal); E55.9 Vitamin D deficiency, unspecified; N18.31 Chronic kidney disease, stage 3a; E11.21 Type 2 diabetes mellitus with diabetic nephropathy; R80.8 Other proteinuria; E87.20 Acidosis, unspecified
CPT/HCPCS: 99214

== ENCOUNTER 2025-03-03 13:07 | Outpatient (REF) | payer MEDICARE, OTHER, SELFPAY ==
--- OUTSIDE RECORDS SUMMARY | 2025-03-03 17:00 | XMS_ITS | Clinical Summary ---
Author Organization [facility] Address 100 [facility] [address] [place] [address] Phone Care Team Providers Care Interlocking Pavement Installer Name Role Phone Isac Jhaveri MD Primary Care Provider [phone] Allergies Active Allergy Reactions Criticality Noted Date [...] % PVNMA 11/16/2019 us Rtama Conversion LAB [id number] LICITED RESULTS Final Result PVNMA from Last 3 Months or Most Recently Relevant to Health Maintenance Insurance [address] [place] [address] Unicare Medicare Medicare Unicare [place] [id number] [address] [place] [id number] Care Teams Interlocking Pavement Installer Relationship Specialty Start Date End Date Isac Jhaveri MD [address] [place] [address] PCP - General 03/15/20
--- OUTSIDE RECORDS SUMMARY | 2025-03-03 17:00 | XMS_ITS | Clinical Summary ---
Author Organization [facility] Prior to 08/02/[address] [place] [address] Care Team Providers Care Spar Machine Operator Helper Name Role Phone Isac Jhaveri MD Primary Care Provider [phone] Allergies Active Allergy Reactions Criticality Noted Date [...] age to complete this topic Care Teams Spar Machine Operator Helper Relationship Specialty Start Date End Date Isac Jhaveri MD [address] [facility] [address] [place] [address] PCP - General Primer Press Operator 09/18/23
--- OUTSIDE RECORDS SUMMARY | 2025-03-03 17:00 | XMS_ITS | Encounter Summary ---
Author Organization [facility] Prior to 08/02/[address] [place] [address] Care Team Providers Care Medical Records Library Professor Name Role Phone Isac Jhaveri MD Primary Care Provider [phone] Encounter Details Date Type Department Care Team Description 10/19/2023 [facility] [address] [place] [address] Vidal Demarco, [facility] Social History Tobacco Use Types Packs/Day Years [...] on filedocumented in this encounter Care Teams Medical Records Library Professor Relationship Specialty Start Date End Date Isac Jhaveri MD [facility] [address] [address] PCP - General Food Assembler 09/18/23 documented as of this encounter
[2025-03-03 18:05] LABS: Anion Gap 14 (12-20); Blood Urea Nitrogen 64 mg/dL (9-16); Carbon Dioxide 18 mmol/L (22-29); Chloride 116 mmol/L (96-108); Estimated Glomerular Filt Rate 18; Potassium 4.1 mmol/L (3.3-5.1); Sodium 144 mmol/L (135-145)
== END 2025-03-03 13:08 ==
LOC: HO.HKASLDS 13:07
PROVIDERS: PCP Internal Medicine; Visit Provider Internal Medicine Nephrology
DX: E11.21 Type 2 diabetes mellitus with diabetic nephropathy (principal); I12.9 Hypertensive chronic kidney disease with stage 1 through stage 4 chronic kidney disease, or unspecified chronic kidney disease; E55.9 Vitamin D deficiency, unspecified; E11.22 Type 2 diabetes mellitus with diabetic chronic kidney disease; N18.31 Chronic kidney disease, stage 3a; R80.8 Other proteinuria; E87.20 Acidosis, unspecified; Z79.899 Other long term (current) drug therapy; Z87.891 Personal history of nicotine dependence
CPT/HCPCS: 36415; 80051; 82565; 84520

== ENCOUNTER 2025-03-03 13:16 | Outpatient (AMB) | payer OTHER, MEDICARE, SELFPAY ==
[2025-03-03 13:34] VITALS: BP 118/60; PULSE 62; O2SAT 96; BMI 29.0
--- NOTE | 2025-03-03 13:34 | HO.NEPHOV_ITS ---
Vital Signs 03/03/25 13:34 Height 6 ft Weight 214 lb BMI 29.0 BP 118/60 Blood Pressure Location Lt brachial Position Sitting Pulse 62 Pulse Source Pulse Oximeter Pulse Oximetry (%) 96 Oxygen Delivery Method Room Air Intake Visit Reasons: 2mon /u w/labs-Conf Director Client Services Required: No Accompanied by: Spouse Allergies morphine Allergy (Verified 03/03/25 13:36) Unknown Penicillins Allergy (Verified 03/03/25 13:36) Unknown HPI Comments Details: Nathen was seen in follow-up of his chronic kidney disease and hypertension. He was found to have acute on chronic heart failure with a preserved ejection fraction. He had lymph nodes in the right axilla which on biopsy showed low- grade B-cell lymphoma and follows with Oncology. He is a diabetic on medications. He had a renal biopsy which showed diabetic changes. His blood sugar control is better. His blood pressure has been at goal. His edema is gone. He denies any nausea, vomiting, shortness of breath, proximal nocturnal dyspnea, orthopnea, cough or urinary symptoms. He is trying to be compliant with low-sodium diet and fluid intake. He does not take any nonsteroidal anti- inflammatory medication. [facility] Medical History (Updated 10/23/24 @ 18:43 by Beto Collazo MD) Heart failure B-cell lymphoma Proteinuria Hypertension Chronic kidney disease, stage 3a Surgical History History of cataract surgery Family History Mother Heart disease Social History Alcohol intake: never Patient Tobacco Use Status: Former Tobacco user Review of Systems Const All systems reviewed & are unremarkable except as noted in HPI and below Physical Exam Vital Signs: Last Vital Signs Pulse 62 03/03/25 13:34 BP 118/60 03/03/25 13:34 Pulse Ox 96 03/03/25 13:34 Oxygen Delivery Method Room Air 03/03/25 13:34 BMI result Body Mass Index 29.0 Const General: comfortable and no acute distress Orientation/consciousness: patient oriented x3 HEENT Head: Yes normocephalic Mouth: Normal oral and palatal mucosa present Eyes EOM: EOMs intact bilaterally Neck Neck: Yes supple Resp Auscultation: clear to auscultation bilaterally Cardio Jugular venous distension: no JVD Rate: regular rate GI Palpation (GI): Soft to palpation Auscultation: normal bowel sounds General: Yes no CVA tenderness Back/Spine/Pelvis Back: no CVA tenderness Skin General skin exam: no rashes or lesions noted Neuro General: patient oriented x3 and moves all extremities Extrem General: Yes no pedal edema Results Reviewed Nephrology Results: Hgb, (14.0-18.0) 10.4 g/dl L 10/22/24 WBC, (4.8-10.8) 9.0 X10*3/uL 10/22/24 Plt Count, (160-400) 270 X10*3/uL 10/22/24 Sodium, (135-145) 144 mmol/L Today Potassium, (3.3-5.1) 4.1 mmol/L Today Chloride, (96-108) 116 mmol/L H Today Carbon Dioxide, (22-29) 18 mmol/L L Today BUN, (9-16) 64 mg/dL H Today Creatinine, (0.5-1.4) 3.34 mg/dL H Today Calcium, (8.4-10.2) 7.9 mg/dL L 10/22/24 Assessment & Plan Assessment & Plan (1) Diabetic nephropathy: Code(s): E11.21 - Type 2 diabetes mellitus with diabetic nephropathy Category: Medical Qualifiers: Diabetes mellitus type: type 2 Qualified Code(s): E11.21 - Type 2 diabetes mellitus with diabetic nephropathy Plan 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 His recent serum creatinine is fa irly stable. He is on torsemide . He is off lisinopril. He is on spironolactone . His volume status was optimal. His urine output is good. He should continue on PO oral sodium bicarbonate 650 mg daily for metabolic acidosis. He should follow-up with oncology. Started calcium supplements. Follow up labs ordered. Answered all questions Orders: Orders Complete Blood Count Auto Diff 3 Months E11.21 - Type 2 diabetes mellitus with diabetic nephropathy Creatinine 3 Months E11.21 - Type 2 diabetes mellitus with diabetic nephropathy Electrolytes 3 Months E11.21 - Type 2 diabetes mellitus with diabetic nephropathy Blood Urea Nitrogen 3 Months E11.21 - Type 2 diabetes mellitus with diabetic nephropathy Coding Level of Care Code Est Pt Level 4 (32346) Diagnoses Diabetic nephropathy associated with type 2 diabetes mellitus E11.21 Diabetes mellitus type: type 2
== END 2025-03-03 14:06 | disposition home or self-care (01) ==
LOC: HO.HKAS 13:16
PROVIDERS: PCP Internal Medicine; Visit Provider Internal Medicine Nephrology
DX: E11.21 Type 2 diabetes mellitus with diabetic nephropathy (principal)
CPT/HCPCS: 99214